=== PATIENT | female | born 1935 | race Caucasian/White ===

== ENCOUNTER 2017-10-26 11:57 | Emergency (ER) | payer OTHER ==
--- OUTSIDE RECORDS SUMMARY | 2017-10-26 11:59 | XMS REPORT | Clinical Summary ---
:1935 Author Organization [facility] Address [address] [place] [id number] Care Team Providers Name Role Phone Asked, No Pcp Primary Care Provider Unavailable Allergies No Known Allergies Current Medications Prescription Sig. Disp. Refills Start Date End Date Status sertraline (ZOLOFT) 100 MG Take 100 mg by 08/06/2016 Active tablet mouth daily. rosuvastatin (CRESTOR) 10 Take 10 mg by 08/11/2016 Active MG tablet mouth daily. aspirin (ECOTRIN) 81 MG Take 81 mg by Active enteric coated tablet mouth daily. Active Problems Problem Noted Date Cardiac syncope 08/21/2016 Bradycardia 08/21/2016 Depression 08/21/2016 Hyperlipidemia 08/21/2016 Sinus arrest 08/21/2016 Social History Tobacco Use Types Packs/Day Years Used Date Never Smoker Alcohol Use Drinks/Week oz/Week Comments No Sex Assigned at Date Recorded Not on file Last Filed Vital Signs Not on file Plan of Treatment Health Maintenance Due Date Last Done Comments ZOSTER VACCINE 1997 PNEUMOCOCCAL POLYSACCHARIDE VACCINE AGE 65 AND OVER 2002 PNEUMOCOCCAL-13 2002 INFLUENZA VACCINE 02/22/2018 Implants Implanted Type Area Highballer Device Expiration Model / Identifier Date Serial / Lot Pacemaker Recreation Worker Dr Knox 2chmbr W/ Is-1 Uni/Bi Conn Advisa - [id number] - [id number] Cardiac N/A: MEDTRONIC 12/19/2017 [id number] / Implanted: Qty: 1 on 08/21/2016 by Dawson Tompkins MD Pacemaker N/A CARDIAC RHYTHM [id number] / Generators DISEASE MGMT [id number] Lead, Pacemaker Bipolar Fix Forming Atrial And Ventricular Steroid Eluting 52 Centimeter Capsure Fix Novus - [id number] Cardiac Pacing N/A: [employer]TR[employer] CRM 04/10/2018 [id number] / Implanted: 08/21/2016 (Quantity not on file) Leads or N/A [employer]. [id number] / Electrodes or [id number] Accessories Lead, Bipolar Active Fixation Atrial Steroid Eluting 45 Cm Capsure Fix Novus System - [id number] Cardiac Pacing N/A: [employer] CRM 05/31/2018 [id number] / Implanted: 08/21/2016 (Quantity not on file) Leads or N/A [employer]. [id number] / Electrodes or [id number] Accessories Results Not on fileafter 10/25/2016 Insurance Payer Benefit Plan / Group Subscriber ID Type Phone Address MEDICARE MEDICARE PART A AND B xxxxxxxxxx Medicare [place], [place] AETNA MEDICARE AETNA MEDICARE HMO/PPO [facility] xxxxxxxx HMO 522 [phone] [address]
--- NOTE | 2017-10-26 12:58 | RAD REPORT ---
EXAM DESCRIPTION: RAD - Chest Single View - 10/26/2017 12:45 pm CLINICAL HISTORY: Chest pain. COMPARISON: 04/25/2017 FINDINGS: Portable technique limits examination quality. The lungs are grossly clear. The heart is normal in size. No displaced fractures.Dual lead pacer krystal ce is present. IMPRESSION: No acute intrathoracic process suspected.
[2017-10-26 13:06] LABS: Absolute Lymphocytes (CBC) 2.1 K/uL (0.7-4.9); Absolute Monocytes 0.5 K/uL (0.1-1.3); Absolute Neutrophil 2.5 K/uL (1.8-8.0); Basophils % 0.5 % (0-1.3); Eosinophils % 1.2 % (0-4.4); Hematocrit 39.1 % (36.0-45.0); Lymphocytes % 39.8 % (15.3-44.8); MCV 88.9 fL (80-100); MPV 8.8 fL (7.6-11.3); Monocytes % 10.5 % (3.3-12.3)
[2017-10-26 13:13] LABS: Protime INR 0.93
[2017-10-26 13:35] LABS: Bilirubin Direct 0.1 mg/dL (0-0.2); Bilirubin Total 0.6 mg/dL (0.3-1.2); CKMB Creatine Kinase MB 1.4 ng/ml (0.3-4.0); Protein, Total 6.6 g/dL (6.0-8.3)
[2017-10-26 13:36] LABS: Albumin 3.7 g/dL (3.2-5.5); Magnesium 1.9 mg/dL (1.8-2.5)
[2017-10-26] MEDS ORDERED: NA CHLORIDE 0.9% 500 ML ONE (15:24)
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
--- NOTE | 2017-10-26 15:25 | ER ---
Nurse's Notes [facility] Name: Yuki De Leon Age: 82 yrs Sex: Female : 1935 Arrival Date: 10/26/2017 Time: 11:59 Bed 7 Private MD: Diagnosis: Other chest pain-Due to Pacemaker Presentation: 10/26 12:09 Presenting complaint: Patient states: "I woke up this morning and my pacemaker was lk1 hurting. Now its messing with my stomach and I feel weak all over.". Transition of care: patient was not received from another setting of care. Onset of symptoms was October 25, 2017 at 08:00. Care prior to arrival: None. 12:09 Method Of Arrival: Ambulatory lk1 12:09 Acuity: SHAQ 3 lk1 Triage Assessment: 12:12 General: Appears in no apparent distress. Behavior is calm, cooperative, appropriate lk1 for age. Pain: Complains of pain in right leg and left leg Pain currently is 1 out of 10 on a pain scale. Cardiovascular: Capillary refill is brisk Patient's skin is warm and dry. Respiratory: Airway is patent Respiratory effort is even, unlabored, Respiratory pattern is regular, symmetrical. Historical: - Allergies: 12:11 No Known Allergies; lk1 - PMHx: 12:11 Hyperlipidemia; Hypothyroidism; Pacemaker; lk1 - PSHx: 12:11 CORNEAL TRANSPLANT; Hysterectomy; lk1 - Immunization history:: Adult Immunizations up to date. - Social history:: Smoking status: Patient/guardian denies using tobacco. Screenin:27 Abuse screen: Denies threats or abuse. Denies injuries from another. Nutritional iw screening: No deficits noted. Tuberculosis screening: No symptoms or risk factors identified. Fall Risk None identified. Assessment: 13:10 General: Appears in no apparent distress. comfortable, Behavior is calm, cooperative, ch appropriate for age. Pain: Denies pain. Neuro: Level of Consciousness is awake, alert, obeys commands, Oriented to person, place, time, situation, Special Effects Artist are equal bilaterally Moves all extremities. Full function Gait is steady, Speech is normal, Facial symmetry appears normal, Facial symmetry: tongue is midline, Pupils are PERRLA. Cardiovascular: Reports pt states once earlier in the day her chest hurt where the pace maker sits, and in her epigastric area. pt denies pain now. Denies chest pain, Heart tones S1 S2 present Capillary refill < 3 seconds in bilateral fingers toes JVD is absent Patient's skin is warm and dry. Pulses are all present. Edema is absent. 13:10 Respiratory: Airway is patent Respiratory effort is even, unlabored, Breath sounds are ch clear bilaterally. GI: No signs and/or symptoms were reported involving the gastrointestinal system. Abdomen is flat, non-distended, Bowel sounds present X 4 quads. Abd is soft and non tender X 4 quads. : No signs and/or symptoms were reported regarding the genitourinary system. Derm: Skin is normal. 14:00 General: Appears in no apparent distress. comfortable, Behavior is calm, cooperative. iw Pain: Denies pain. Neuro: Level of Consciousness is awake, alert, obeys commands, Oriented to person, place, time, situation, Moves all extremities. Full function. Cardiovascular: Patient's skin is warm and dry. Respiratory: Respiratory effort is even, unlabored, Respiratory pattern is regular, symmetrical. Derm: Skin is normal. Musculoskeletal: Range of motion: intact in all extremities. 15:00 Reassessment: Patient appears in no apparent distress at this time. Patient and/or iw family updated on plan of care and expected duration. Pain level reassessed. Patient is alert, oriented x 3, equal unlabored respirations, skin warm/dry/pink. pt ambulated to bathroom with steady gait. 15:10 Reassessment: Patient appears in no apparent distress at this time. pt states she does ch not want the fluids and if everything is normal she wants to go home. marcell page notified. Vital Signs: 12:12 BP 113 / 52; Pulse 66; Resp 15; Temp 97.7(O); Pulse Ox 99% on R/A; Weight 71.21 kg (R); lk1 Height 5 ft. 7 in. (170.18 cm) (R); Pain 1/10; 13:10 BP 132 / 78; Pulse 62; Resp 16; Temp 98.2; Pulse Ox 99% on R/A; Pain 0/10; ch 14:30 BP 120 / 58; Pulse 64; Resp 15; Pulse Ox 98% on R/A; Pain 0/10; ch 12:12 Body Mass Index 24.59 (71.21 kg, 170.18 cm) lk1 Vitals: 13:10 Cardiac Rhythm Assessment Paced. ED Course: 11:59 Patient arrived in ED. rg4 12:10 Triage completed. lk1 12:15 Arm band placed on right wrist. lk1 12:15 Patient has correct armband on for positive identification. iw 12:18 Marcell Loera PA is PHCP. cp 12:18 Marcell Sharma MD is Attending Physician. cp 12:34 X-ray completed. Portable x-ray completed in exam room. Patient tolerated procedure jb2 well. 12:34 XRAY Chest (1 view) In Process Unspecified. EDMS 12:43 EKG done, by holter technician. reviewed by Marcell POWELL. at1 12:50 Angélica Hooks, RN is Primary Nurse. 13:02 Inserted saline lock: 20 gauge in right antecubital area, using aseptic technique. cc1 13:02 Initial lab(s) drawn, by oh, sent to lab. cc1 14:30 No apparent distress. Resting quietly. 14:30 night monitor on. Pulse ox on. NIBP on. Warm blanket given. 15:28 No provider procedures requiring assistance completed. IV discontinued, intact, hj bleeding controlled, No redness/swelling at site. Pressure dressing applied. 15:29 Patient has correct armband on for positive identification. Placed in gown. Bed in low hj position. Call light in reach. Side rails up X 1. Adult w/ patient. Administered Medications: No medications were administered Outcome: 15:24 Discharge ordered by MD. 15:29 Discharged to home ambulatory, with family. 15:29 Condition: stable 15:29 Discharge instructions given to patient, family, Instructed on discharge instructions, follow up and referral plans. medication usage, Demonstrated understanding of instructions, follow-up care, medications, Prescriptions given X 1. 15:30 Patient left the ED. Signatures: Dispatcher [employer] EDMS Angélica Hooks, RN MARINA Remy Mckenna jb2 Azalia Burch RN RN Antwon Avila cc1 Malu vivas, electrolysis needle operator EKG Tat1 Collins Sal RN RN Marcell Loera PA PA cp Kluge, Leah, RN RN lk1 Carrie Montero rg4
[2017-10-26 15:38] VITALS: BP 113/52; TEMP 97.7; O2SAT 99
--- NOTE | 2017-10-26 15:50 | EKG ---
Test Date: 2017-10-26 Test Time: 12:33:31 Fruit Thinner: ANNIKA MEASUREMENT RESULTS: Intervals: Rate: 63 AK: 186 QRSD: 80 QT: 412 QTc: 421 [place]: P: AK: 186 QRS: -31 T: 56 INTERPRETIVE STATEMENTS: Atrial-paced rhythm Left axis deviation Possible Inferior infarct, age undetermined Abnormal ECG Compared to ECG 08/20/2016 15:24:54 Left-axis deviation now present Sinus bradycardia no longer present Sinus arrhythmia no longer present Myocardial infarct finding still present Electronically Signed On 10-26-17 15:49:36 CDT by Tobin Zapata
[2017-10-26 16:44] LABS: Urine Blood NEGATIVE (NEG); Urine Glucose NEGATIVE (NEG); Urine Protein NEGATIVE (NEG); Urine Specific Gravity 1.025 (1.005-1.030); Urine pH 6.5 (5.0-7.0)
== END 2017-10-26 15:30 | disposition home or self-care (01) ==
LOC: ER 11:57
DX: R07.89 Other chest pain (principal); E78.5 Hyperlipidemia, unspecified; Z95.0 Presence of cardiac pacemaker
CPT/HCPCS: 36415; 71045; 80048; 80076; 81003; 82550; 82553; 83735; 83880; 84484; 85025; 85610; 85730; 93005; 99284

== ENCOUNTER 2017-11-17 11:21 | Inpatient (IN) | payer OTHER ==
--- OUTSIDE RECORDS SUMMARY | 2017-11-17 11:24 | XMS REPORT | Clinical Summary ---
:1935 Author Organization [facility] Address [address] [place] [id number] Care Team Providers Name Role Phone Asked, [...] Health Maintenance Due Date Last Done Comments SHINGRIX VACCINE (#1) 1987 ZOSTER VACCINE 1997 PNEUMOCOCCAL POLYSACCHARIDE VACCINE AGE 65 AND OVER 2002 PNEUMOCOCCAL-13 2002 INFLUENZA VACCINE 02/22/2018 Implants Implanted Type Area It Network Architect Device Expiration Model / Identifier Date Serial / Lot Pacemaker Information Technology Auditor Dr Mri 2chmbr W/ Is-1 Uni/Bi Conn Advisa - [id number] - [id number] Cardiac N/A: MEDTRONIC 12/19/2017 [id number] / Implanted: Qty: 1 on 08/21/2016 by Dawson Tompkins MD Pacemaker N/A CARDIAC RHYTHM [id number] / Generators DISEASE MGMT [id number] Lead, Pacemaker Bipolar Fix Forming Atrial And Ventricular Steroid Eluting 52 Centimeter Capsure Fix Novus - [id number] Cardiac Pacing N/A: [employer] CRM 04/10/2018 [id number] / Implanted: 08/21/2016 (Quantity not on file) Leads or N/A [employer] [id number] / Electrodes or [id number] Accessories Lead, Bipolar Active Fixation Atrial Steroid Eluting 45 Cm Capsure Fix Novus System - [id number] Cardiac Pacing N/A: [employer] CRM 05/31/2018 [id number] / Implanted: 08/21/2016 (Quantity not on file) Leads or N/A [employer] [id number] / Electrodes or [id number] Accessories Results Not on fileafter 11/16/2016 Insurance Payer Benefit Plan / Group Subscriber ID Type Phone Address MEDICARE MEDICARE PART A AND B xxxxxxxxxx Medicare [place], [place] AETNA MEDICARE AETNA MEDICARE HMO/PPO [facility] xxxxxxxx HMO 522 [phone] [place] [id number]
--- NOTE | 2017-11-17 13:00 | RAD REPORT ---
EXAM DESCRIPTION: RAD - Chest Pa And Lat (2 Views) - 11/17/2017 12:33 pm CLINICAL HISTORY: Cough and congestion. COMPARISON: 05/03/2017, 08/20/2016 FINDINGS: Area of nodularity in the right apex appears unchanged. The lungs are clear of acute infil trate. The heart is normal in size. No displaced fractures. Dual lead pacer device is present. IMPRESSION: Vague area of nodularity in right apex appears similar to comparative examinations. No acute intrathoracic finding.
[2017-11-17 13:43] LABS: Absolute Lymphocytes (CBC) 2.8 K/uL (0.7-4.9); Absolute Neutrophil 8.9 K/uL (1.8-8.0); Basophils % 0.3 % (0-1.3); Eosinophils % 0.3 % (0-4.4); Hematocrit 41.4 % (36.0-45.0); Lymphocytes % 21.9 % (15.3-44.8); MCH 28.3 pg (27.0-35.0); MCV 88.4 fL (80-100); MPV 8.8 fL (7.6-11.3); Monocytes % 7.9 % (3.3-12.3); RBC Red Blood Cell Count 4.68 M/uL (3.86-4.86)
[2017-11-17 13:54] LABS: Potassium 4.5 mEq/L (3.6-5.0)
--- NOTE | 2017-11-17 15:15 | EDPHYS ---
Physician Documentation [facility] Name: Yuki De Leon Age: 82 yrs Sex: Female : 1935 Arrival Date: 11/17/2017 Time: 11:22 Bed 28 Private MD: [facility] ED Physician Jesse Ferrer HPI: 11/17 13:32 This 82 yrs old Female presents to ER via Wheelchair with complaints of kb Cough, Congestion. 13:32 The patient or guardian reports cough, that is intermittent, described as mild, with no kb sputum. Onset: The symptoms/episode began/occurred 3 day(s) ago. Severity of symptoms: At their worst the symptoms were mild, moderate, in the emergency department the symptoms are unchanged. Modifying factors: The symptoms are alleviated by nothing, the symptoms are aggravated by nothing. Associated signs and symptoms: Pertinent positives: chest pain, right sided, Pertinent negatives: diarrhea, ear ache, fever, nausea, rhinorrhea, sore throat, vomiting. The patient has not experienced similar symptoms in the past. The patient has not recently seen a physician. 13:34 Pt states she thinks she has pneumonia because she has had a cough and congestion for 3 kb weeks and then started having a pain to right upper chest 3 days ago. Historical: - Allergies: 11:34 No Known Allergies; aj - Home Meds: 11:34 levothyroxine oral [Active]; sertraline oral oral [Active]; aj - PMHx: 11:34 Hyperlipidemia; Hypothyroidism; Pacemaker; aj - PSHx: 11:34 CORNEAL TRANSPLANT; Hysterectomy; aj - Immunization history:: Adult Immunizations up to date. - Social history:: Smoking status: Patient/guardian denies using tobacco. ROS: 13:32 Constitutional: Negative for fever, chills, and weight loss, Abdomen/GI: Negative for kb abdominal pain, nausea, vomiting, diarrhea, and constipation, Back: Negative for injury and pain, : Negative for injury, bleeding, discharge, and swelling, MS/Extremity: Negative for injury and deformity, Skin: Negative for injury, rash, and discoloration, Neuro: Negative for headache, weakness, numbness, tingling, and seizure. 13:32 Cardiovascular: Positive for chest pain, Negative for edema, orthopnea, palpitations, paroxysmal nocturnal dyspnea. 13:32 Respiratory: Positive for cough, Negative for dyspnea on exertion, hemoptysis, orthopnea, pleurisy, shortness of breath, sputum production, wheezing. Exam: 13:35 Constitutional: This is a well developed, well nourished patient who is awake, alert, kb and in no acute distress. Head/Face: Normocephalic, atraumatic. Chest/axilla: Normal chest wall appearance and motion. Nontender with no deformity. No lesions are appreciated. Cardiovascular: Regular rate and rhythm with a normal S1 and S2. No gallops, murmurs, or rubs. Normal PMI, no JVD. No pulse deficits. Respiratory: Lungs have equal breath sounds bilaterally, clear to auscultation and percussion. No rales, rhonchi or wheezes noted. No increased work of breathing, no retractions or nasal flaring. Abdomen/GI: Soft, non-tender, with normal bowel sounds. No distension or tympany. No guarding or rebound. No evidence of tenderness throughout. Skin: Warm, dry with normal turgor. Normal color with no rashes, no lesions, and no evidence of cellulitis. MS/ Extremity: Pulses equal, no cyanosis. Neurovascular intact. Full, normal range of motion. Neuro: Awake and alert, GCS 15, oriented to person, place, time, and situation. Cranial nerves II-XII grossly intact. Motor strength 5/5 in all extremities. Sensory grossly intact. Cerebellar exam normal. Normal gait. Vital Signs: 11:34 BP 105 / 61; Pulse 87; Resp 20; Temp 98.0; Pulse Ox 98% on R/A; Weight 76.2 kg; Height aj 5 ft. 7 in. (170.18 cm); 13:05 BP 128 / 68; Pulse 78; Resp 18; Pulse Ox 97% on R/A; Pain 0/10; em 14:15 BP 133 / 69; Pulse 75; Resp 18; Pulse Ox 98% ; Pain 5/10; em 15:36 BP 143 / 68; Pulse 76; Resp 20; Pulse Ox 97% on R/A; Pain 0/10; em 16:43 BP 117 / 53; Pulse 82; Resp 21; Temp 98.1(O); Pulse Ox 98% on R/A; Pain 0/10; em 11:34 Body Mass Index 26.31 (76.20 kg, 170.18 cm) aj MDM: 12:58 Patient medically screened. kb 13:35 Data reviewed: vital signs, nurses notes. Data interpreted: Pulse oximetry: on room air kb is 98 %. Interpretation: normal. 14:46 Counseling: I had a detailed discussion with the patient and/or guardian regarding: the kb historical points, exam findings, and any diagnostic results supporting the discharge/admit diagnosis, lab results, radiology results, the need for further work-up and treatment in the hospital. 15:11 Physician consultation: Delphine Kelley MD was contacted at 15:13, regarding admission, kb to the telemetry unit. patient's condition, and will see patient in ED. 11/17 13:12 Order name: Basic Metabolic Panel kb 11/17 13:12 Order name: BNP 11/17 13:12 Order name: CBC with Diff kb 11/17 13:12 Order name: Magnesium kb 11/17 13:12 Order name: Troponin (emerg Dept Use Only) kb 11/17 13:12 Order name: Basic Metabolic Panel; Complete Time: 13:56 EDMS 11/17 11:44 Order name: Chest Pa And Lat (2 Views) XRAY; Complete Time: 13:00 kb 11/17 13:12 Order name: BNP B-Type Natriuretic Peptide; Complete Time: 14:23 EDMS 11/17 13:12 Order name: CBC with Automated Diff; Complete Time: 13:44 EDMS 11/17 13:12 Order name: Magnesium; Complete Time: 13:56 EDMS 11/17 13:12 Order name: Troponin (Emerg Dept Use Only); Complete Time: 14:23 EDMS 11/17 13:29 Order name: DD; Complete Time: 14:46 em 11/17 15:29 Order name: PT-INR; Complete Time: 15:56 ag 11/17 15:29 Order name: Ptt, Activated; Complete Time: 15:56 ag 11/17 13:12 Order name: EKG; Complete Time: 13:12 kb 11/17 13:12 Order name: EKG - Nurse/Tech; Complete Time: 14:35 kb 11/17 13:12 Order name: IV Saline Lock; Complete Time: 13:29 kb 11/17 13:12 Order name: Labs collected and sent; Complete Time: 13:29 kb 11/17 13:12 Order name: O2 Per Protocol; Complete Time: 13:29 kb 11/17 13:12 Order name: O2 Sat Monitoring; Complete Time: 13:29 kb 11/17 14:41 Order name: CT Chest For PE Angio; Complete Time: 15:37 kb Administered Medications: 15:49 Drug: Lovenox 1 mg/kg Route: Sub-Q; Site: abdomen; em 16:36 Follow up: Response: No adverse reaction em Disposition: 11/17/17 15:15 Hospitalization ordered by Delphine Kelley for Inpatient Admission. Preliminary diagnosis are Chest pain, unspecified, Pulmonary embolism. - Bed requested for Telemetry/MedSurg (Inpatient). - Status is Inpatient Admission. em - Condition is Stable. - Problem is new. - Symptoms are unchanged. UTI on Admission? No Addendum: 11/21/2017 12:44 Co-signature as Attending Physician, Jesse Ferrer MD. g s Signatures: Dispatcher [employer] EDOR Angelina Wilson, CREDIT AND COLLECTIONS ANALYST-C CREDIT AND COLLECTIONS ANALYST-Ckb Malu Dunlap, RN RN Ernesto Thornton, DIRECTOR OF SAFETY AND SECURITY DIRECTOR OF SAFETY AND SECURITY Kristine Breaux, RN Jesse Pina MD MD gs Corrections: (The following items were deleted from the chart) 11/17 13:30 13:12 Urine Dipstick-Ancillary ordered. kb em
--- NOTE | 2017-11-17 15:15 | ER ---
Nurse's Notes [facility] Name: Yuki De Leon Age: 82 yrs Sex: Female : 1935 Arrival Date: 11/17/2017 Time: 11:22 Bed 28 Private MD: Froylan Baez Diagnosis: Chest pain, unspecified;Pulmonary embolism Presentation: 11/17 11:32 Presenting complaint: Patient states: "I feel like my chest is congested. I called Dr abril Baez and they told me to come into the ER because they had no way of doing a chest xray." Respirations are even and unlabored in triage. Transition of care: patient was not received from another setting of care. Onset of symptoms was November 13, 2017. Initial Sepsis Screen: Does the patient meet any 2 criteria? No. Patient's initial sepsis screen is negative. Does the patient have a suspected source of infection? No. Patient's initial sepsis screen is negative. Care prior to arrival: None. 11:32 Method Of Arrival: Wheelchair 11:32 Acuity: SHAQ 3 aj Triage Assessment: 11:34 General: Appears in no apparent distress. comfortable, Behavior is calm, cooperative, aj appropriate for age. Pain: Denies pain. EENT: Reports nasal congestion nasal discharge. Neuro: Level of Consciousness is awake, alert, obeys commands, Oriented to person, place, time, situation. Respiratory: Reports cough that is pain with cough Airway is patent Respiratory effort is even, unlabored, Respiratory pattern is regular, symmetrical, Breath sounds are clear. Derm: Skin is intact, is healthy with good turgor, Skin is pink, warm \\T\\ dry. normal. Historical: - Allergies: 11:34 No Known Allergies; aj - Home Meds: 11:34 levothyroxine oral [Active]; sertraline oral oral [Active]; aj - PMHx: 11:34 Hyperlipidemia; Hypothyroidism; Pacemaker; aj - PSHx: 11:34 CORNEAL TRANSPLANT; Hysterectomy; aj - Immunization history:: Adult Immunizations up to date. - Social history:: Smoking status: Patient/guardian denies using tobacco. Screenin:45 Abuse screen: Denies threats or abuse. Nutritional screening: No deficits noted. em Tuberculosis screening: No symptoms or risk factors identified. Fall Risk None identified. Assessment: 13:10 General: Appears in no apparent distress. comfortable, Behavior is calm, cooperative, em Reports cough and chest pain with respirations that started about 3 weeks ago but has got worse the past 3 days. Pain: Complains of pain in anterior aspect of right upper chest Pain radiates to back Pain currently is 6 out of 10 on a pain scale. Neuro: Level of Consciousness is awake, alert, Oriented to person, place, time, situation, Speech is normal, Denies dizziness. Cardiovascular: Heart tones S1 S2 present Capillary refill < 3 seconds Patient's skin is warm and dry. Respiratory: Airway Respiratory effort is even, unlabored. Respiratory: Breath sounds are clear bilaterally. GI: Abdomen is flat. : No signs and/or symptoms were reported regarding the genitourinary system. EENT: No signs and/or symptoms were reported regarding the EENT system. Derm: Skin is intact, Skin is pink, warm \\T\\ dry. Musculoskeletal: Range of motion: intact in all extremities. 13:15 General: The previous assessment is accurate, call light remains within reach. . ss 14:15 Reassessment: Patient appears in no apparent distress at this time. Patient and/or em family updated on plan of care and expected duration. Pain level reassessed. Patient is alert, oriented x 3, equal unlabored respirations, skin warm/dry/pink. 14:40 Reassessment: Patient appears in no apparent distress at this time. critical lab em result, DD [id number], Angelina MASTER DATA ANALYST notified. 15:04 Reassessment: Patient appears in no apparent distress at this time. Patient and/or em family updated on plan of care and expected duration. Pain level reassessed. Patient is alert, oriented x 3, equal unlabored respirations, skin warm/dry/pink. pt wheeled to CT via stretcher. 16:00 Reassessment: Patient appears in no apparent distress at this time. Patient and/or em family updated on plan of care and expected duration. Pain level reassessed. Patient is alert, oriented x 3, equal unlabored respirations, skin warm/dry/pink. Patient states feeling better. 16:58 Reassessment: Patient appears in no apparent distress at this time. Patient and/or em family updated on plan of care and expected duration. Pain level reassessed. Patient is alert, oriented x 3, equal unlabored respirations, skin warm/dry/pink. pt family at bedside Patient denies pain at this time. Patient states feeling better. Vital Signs: 11:34 BP 105 / 61; Pulse 87; Resp 20; Temp 98.0; Pulse Ox 98% on R/A; Weight 76.2 kg; Height aj 5 ft. 7 in. (170.18 cm); 13:05 BP 128 / 68; Pulse 78; Resp 18; Pulse Ox 97% on R/A; Pain 0/10; em 14:15 BP 133 / 69; Pulse 75; Resp 18; Pulse Ox 98% ; Pain 5/10; em 15:36 BP 143 / 68; Pulse 76; Resp 20; Pulse Ox 97% on R/A; Pain 0/10; em 16:43 BP 117 / 53; Pulse 82; Resp 21; Temp 98.1(O); Pulse Ox 98% on R/A; Pain 0/10; em 11:34 Body Mass Index 26.31 (76.20 kg, 170.18 cm) aj ED Course: 11:22 Patient arrived in ED. as 11:22 Froylan Baez DO is Private Physician. as 11:33 Triage completed. aj 11:34 Arm band placed on left wrist. Patient placed in waiting room, Patient notified of wait aj time. 12:33 Chest Pa And Lat (2 Views) XRAY In Process Unspecified. EDMS 12:54 Angelina Wilson FNP-C is PHCP. kb 12:54 Jesse Ferrer MD is Attending Physician. kb 12:58 Ernesto Thornton LVN is Primary Nurse. em 13:25 Inserted saline lock: 20 gauge in left antecubital area, using aseptic technique. Blood em collected. 13:25 No provider procedures requiring assistance completed. Initial lab(s) drawn, by me, em sent to lab. 13:45 Patient has correct armband on for positive identification. Bed in low position. Call em light in reach. Side rails up X2. Adult w/ patient. 14:09 EKG done, by fresh foods technician. reviewed by Jesse Ferrer MD. tc 14:17 Notified Nurse Practitioner and/or Physician Theatre Manager of a critical lab result(s), evaristo Whittakerby from lab reported troponin of 0.88. Notified DIONICIO García. 15:14 Delphine Kelley MD is Hospitalizing Provider. kb 15:18 CT Chest For PE Angio In Process Unspecified. EDMS 16:59 Patient admitted, IV remains in place. em Administered Medications: 15:49 Drug: Lovenox 1 mg/kg Route: Sub-Q; Site: abdomen; em 16:36 Follow up: Response: No adverse reaction em Outcome: 15:15 Decision to Hospitalize by Provider. kb 16:58 Admitted to Tele accompanied by tech, family with patient, via stretcher, room 215, em Report called to Franklyn Etienne RN 16:58 Condition: good 16:58 Instructed on the need for admit, Demonstrated understanding of instructions. 17:13 Patient left the ED. em Signatures: Dispatcher [employer] EDMS Angelina Wilson, PRINTING SERVICES COORDINATOR-C PRINTING SERVICES COORDINATOR-Malu Sanchez, RN RN Ernesto Quevedo, INFORMATION MANAGER INFORMATION MANAGER em Grace Dailey Shelby, RN RN Frances Winters, box liner EKG Ttc Apoorva Fitzgerald, RN RN kr2 Corrections: (The following items were deleted from the chart) 11:36 11:34 Arm band placed on left wrist. Patient placed in an exam room, baril samuels 16:58 16:58 Reassessment: Patient appears in no apparent distress at this time. Patient em and/or family updated on plan of care and expected duration. Pain level reassessed. Patient is alert, oriented x 3, equal unlabored respirations, skin warm/dry/pink. Patient denies pain at this time. Patient states feeling better. em
--- NOTE | 2017-11-17 15:35 | RAD REPORT ---
EXAM DESCRIPTION: CT - Chest For Pe Angio - 11/17/2017 3:18 pm CLINICAL HISTORY: Chest pain COMPARISON: 2013 TECHNIQUE: Dynamically enhanced axial 3 mm thick images of the chest were obtained during administra tion of <100> mL Isovue 370 IV contrast. Coronal and oblique reconstruction images were generated and reviewed. Exam utilizes a protocol for optimal evaluation of pulmonary arterial tree. All CT scans are performed using dose optimization technique as appropriate and may include automated exposure control or mA/KV adjustment according to patient size. FINDINGS: Thrombus is present throughout large portion of the the left lower lobe pulmonary artery, right lower lobe pulmonary artery, right middle lobe pulmonary artery. Additional thrombus to a lesse r extent is seen within the upper lobe pulmonary arteries. Thrombus is also present within the distal left main pulmonary artery. A thoracic aortic aneurysm is not noted. A pleural effusion is not seen. A pericardial effusion is not seen. A pulmonary infarct is not seen. A 13 millimeter nodule within the right upper lobe has decreased in size since 2011 A 22 millimeter right pericardiac opacity has developed IMPRESSION: Moderate to marked bilateral pulmonary emboli 22 millimeter right pericardiac opacity. A followup CT chest in 3 months is recommended The exam was discussed with Cintia Wilson emergency room 3:20 p.m. November 17, 2017
--- NOTE | 2017-11-17 15:38 | EKG ---
Test Date: 2017-11-17 Test Time: 13:36:22 Railcar Switcher: EUGENIO MEASUREMENT RESULTS: Intervals: Rate: 77 IL: 128 QRSD: 70 QT: 406 QTc: 459 [place]: P: 87 IL: 128 QRS: 261 T: 48 INTERPRETIVE STATEMENTS: Normal sinus rhythm Right superior axis deviation Possible Anterior infarct, age undetermined Abnormal ECG Compared to ECG 10/26/2017 12:33:31 Right superior axis now present Atrial-paced complex(es) or rhythm no longer present Ventricular-paced complex(es) or rhythm no longer present Left-axis deviation no longer present Myocardial infarct finding still present Electronically Signed On 11-17-17 15:37:31 CDT by Parveen Arias
[2017-11-17] MEDS ORDERED: ENOXAPARIN 80 MG/0.8 ML SQ ONE (15:42)
[2017-11-17 15:43] LABS: Protime INR 1.05
--- NOTE | 2017-11-17 16:02 | P.HP ---
Certification for Inpatient Patient admitted to: Inpatient With expected LOS: >2 Midnights Practitioner: I am a practitioner with admitting privileges, knowledge of patient current condition, hospital course, and medical plan of care. Services: Services provided to patient in accordance with Admission requirements found in Title 42 Section 412.3 of the Code of Federal Regulations Patient History Date of Service: 11/17/17 Reason for admission: Pulmonary embolism History of Present Illness: Ms De Leon is an 82 years old woman with history of hypothyroidism, history of DVT not on anticoagulation, who start with chest pain about 2 days ago. The pain is on her right side of the chest, constant, about 7/10 of intensity. She denied any , dizziness or weakness. She complaint also of bilateral calf pain since several month ago. In ER her Trop I was elevated 0.88, EKG with non- specific repolarization abnormalities. D-Dimer elevated 7419. Subsequent CTA chest was remarkable for bilateral PE. Allergies No Known Allergies Allergy (Verified 08/20/16 22:23) Home Medications: Bifidobacterium Infantis [Align] 4 mg PO DAILY 02/05/13 Hyolcyamint 0.125 mg SL PRN PRN 02/05/13 Levothyroxine [Synthroid*] 100 mcg PO [id number] 02/05/13 Omeprazole [Prilosec] 20 mg PO DAILY 02/05/13 Sertraline [Zoloft*] 50 mg PO DAILY 02/05/13 Hypromellose [Artificial Tears] 1 gtt OP PRN PRN 02/07/13 Prednisolone Acetate [Pred Mild] 1 gtt OP DAILY 02/07/13 Timolol 0.5% Opth [Timoptic 0.5% Ophth] 1 drops EACH EYE BID 02/07/13 Ciprofloxacin HCl [Cipro*] 500 mg PO BID #20 tab 02/08/13 - Past Medical/Surgical History Diabetic: No -: Hypothyroidism -: Glaucoma -: History of DVT -: GERD -: Depression with anxiety -: Hyperlipidemia -: Spinal stenosis -: Hysterectomy -: Cornea implants -: Neck surgery Psychosocial/ Personal History: She is of over 60 years, has 3 children , 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 - Family History Father -: Cancer (Lung cancer, heavy smoker) Mother -: Heart disease, Hypertension Brother -: Hypertension, Diabetes - Social History Smoking Status: Never smoker Alcohol use: No CD- Drugs: No Caffeine use: Yes Place of Residence: Home Review of Systems 10-point ROS is otherwise unremarkable Physical Examination - Physical Exam General: Alert, In no apparent distress HEENT: Atraumatic, PERRLA, Mucous membr. moist/pink, EOMI, Sclerae nonicteric Neck: Supple, 2+ carotid pulse no bruit, No LAD, Without JVD or thyroid abnormality Respiratory: Clear to auscultation bilaterally, Normal air movement Cardiovascular: Regular rate/rhythm, Normal S1 S2 Gastrointestinal: Normal bowel sounds, No tenderness Musculoskeletal: Tenderness (to palpation on bilateral calf) Integumentary: No rashes Neurological: Normal speech, Normal strength at 5/5 x4 extr, Normal tone, Normal affect Lymphatics: No axilla or inguinal lymphadenopathy - Studies Laboratory Data (last 24 hrs) 11/17/17 14:10: PT 12.4, INR 1.05, APTT 28.2 11/17/17 13:25: WBC 12.8 H, Hgb 13.3, Hct 41.4, Plt Count 345 11/17/17 13:25: B-Natriuretic Peptide 397 H 11/17/17 13:25: Sodium 138, Potassium 4.5, BUN 23 H, Creatinine 1.18 H, Glucose 124 H, Magnesium 2.0 Assessment and Plan - Problems (Diagnosis) (1) Pulmonary embolism Current Visit: Yes Status: Acute Qualifiers: Pulmonary embolism type: saddle Chronicity: acute Acute cor pulmonale presence: without acute cor pulmonale Qualified Code(s): I26.92 - Saddle embolus of pulmonary artery without acute cor pulmonale (2) Hyperlipidemia Current Visit: No Status: Chronic Qualifiers: Hyperlipidemia type: unspecified Qualified Code(s): E78.5 - Hyperlipidemia , unspecified (3) Hypothyroidism Current Visit: No Status: Chronic Qualifiers: Hypothyroidism type: unspecified Qualified Code(s): E03.9 - Hypothyroidism , unspecified - Plan Ms De Leon will be admitted to the hospital due to acute pulmonary embolism. She is hemodynamically stable, BP withing normal limits, O2 sat > 95% on RA, no dyspnea. Will start Full dose lovenox, If she is hemodynamically stable, she can be switch to a novel oral anticoagulant tomorrow and discharge home if remain stable. Will order a doppler US of LE. - Advance Directives Does patient have a Living Will: No Does patient have a Durable POA for Healthcare: No - Code Status/Comfort Care Code Status Assessed: Yes Code Status: Full Code
[2017-11-17] MEDS ORDERED: ONDANSETRON 4 MG/2 ML VIAL IV PRN (17:47)
--- NOTE | 2017-11-17 19:27 | RAD REPORT ---
EXAM DESCRIPTION: VASExtrem Venous W Compress Bil11/17/2017 7:14 pm CLINICAL HISTORY: Bilateral leg swelling COMPARISON: none FINDINGS: The common femoral, superficial femoral, popliteal and posterior tibial veins bilaterally are compressible and demonstrate augmentation. Doppler demonstrates good flow. IMPRESSION: No evidence of deep venous thrombosis involving either lower extremity.
[2017-11-17] MEDS: NA CHLORIDE 0.9% 1,000 ML IV SCH ×2 (20:54→23:34)
[2017-11-17] MEDS: ENOXAPARIN 80 MG/0.8 ML SQ SCH (23:34)
[2017-11-17] MEDS ORDERED: MELATONIN 5 MG TABLET PO PRN (23:40)
[2017-11-18 05:30] LABS: Absolute Lymphocytes (CBC) 2.9 K/uL (0.7-4.9); Absolute Monocytes 0.9 K/uL (0.1-1.3); Absolute Neutrophil 7.6 K/uL (1.8-8.0); Basophils % 0.1 % (0-1.3); Eosinophils % 0.3 % (0-4.4); Hematocrit 36.3 % (36.0-45.0); Lymphocytes % 25.3 % (15.3-44.8); MCH 28.7 pg (27.0-35.0); MCV 88.5 fL (80-100); MPV 9.1 fL (7.6-11.3); Monocytes % 7.8 % (3.3-12.3)
[2017-11-18 05:39] LABS: Potassium 4.3 mEq/L (3.6-5.0)
[2017-11-18] MEDS ORDERED: PNEUMOCOCCAL VACCINE 0.5 ML IMVAC ONE (08:00)
[2017-11-18] MEDS: ENOXAPARIN 80 MG/0.8 ML SQ SCH (08:40)
[2017-11-18] MEDS ORDERED: HYPROMELLOSE OP PRN (09:37)
--- NOTE | 2017-11-18 10:25 | P.CNS ---
Date of Consult: 11/18/17 Reason for Consult: Pulmonary embolus Chief Complaint: Pulmonary embolism History of Present Illness: Patient is 82 years of age admitted with acute onset of shortness of breath and right-sided chest pain admitted from the emergency room diagnosis of pulmonary embolism no prior history of cardiopulmonary disorder denies any previous history of thromboembolic disease she does have a pacemaker and sees a turbine engineer denies any fever chills doing fine as been sick for about few days has chronic swelling of her left leg Allergies No Known Allergies Allergy (Verified 08/20/16 22:23) Home Medications: Levothyroxine [Synthroid*] 100 mcg PO [id number] 02/05/13 Sertraline [Zoloft*] 50 mg PO DAILY 02/05/13 Hypromellose [Artificial Tears] 1 gtt OP PRN PRN 02/07/13 Timolol 0.5% Opth [Timoptic 0.5% Ophth] 1 drops EACH EYE BID 02/07/13 Cholecalciferol (Vitamin D3) [Vitamin D3] 1 tab PO DAILY 11/17/17 Melatonin 1 tab PO BEDTIME 11/17/17 - Past Medical/Surgical History Diabetic: No -: Hypothyroidism -: Glaucoma -: History of DVT -: GERD -: Depression with anxiety -: Hyperlipidemia -: Spinal stenosis -: Hysterectomy -: Cornea implants -: Neck surgery -: Pacemaker placement Psychosocial/ Personal History: She is of over 60 years, has 3 children , 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 - Family History Father History Unknown: Yes Medical History: Cancer (Lung cancer, heavy smoker) Notes: Lung CA Mother History Unknown: Yes Medical History: Heart disease, Hypertension Brother History Unknown: Yes Medical History: Hypertension, Diabetes - Social History Smoking Status: Never smoker Alcohol use: No CD- Drugs: No Caffeine use: Yes Place of Residence: Home Review of Systems 10-point ROS is otherwise unremarkable Physical Examination Temp Pulse Resp BP Pulse Ox 98.4 F 80 18 131/62 95 11/18/17 04:00 11/18/17 04:00 11/18/17 04:00 11/18/17 04:00 11/18/17 04:00 General: Alert, Oriented x3 HEENT: Atraumatic Neck: Supple Respiratory: Clear to auscultation bilaterally Cardiovascular: No edema, Regular rate/rhythm, Normal S1 S2 Gastrointestinal: Normal bowel sounds, Soft and benign Laboratory Data (last 24 hrs) 11/17/17 14:10: PT 12.4, INR 1.05, APTT 28.2 11/17/17 13:25: WBC 12.8 H, Hgb 13.3, Hct 41.4, Plt Count 345 11/17/17 13:25: B-Natriuretic Peptide 397 H 11/17/17 13:25: Sodium 138, Potassium 4.5, BUN 23 H, Creatinine 1.18 H, Glucose 124 H, Magnesium 2.0 - Problems (1) Pulmonary embolism Current Visit: Yes Status: Acute Plan: Patient is 82 years of age admitted with an acute PE which is bilateral she is currently doing well hemodynamically stable oxygenation satisfactory on 2 L of nasal cannula oxygen patient can be changed over 2 Xarelto or Eliquis pending given what's covered by her insurance check room air pulse ox ambulate resume regular diet patient will need lifelong anticoagulation due to unprovoked pulmonary embolism she can ambulate Dc IV fluids Qualifiers: Pulmonary embolism type: saddle Chronicity: acute Acute cor pulmonale presence: without acute cor pulmonale Qualified Code(s): I26.92 - Saddle embolus of pulmonary artery without acute cor pulmonale
--- NOTE | 2017-11-18 16:15 | P.PN ---
Subjective Date of Service: 11/18/17 Primary Care Provider: Dr. Baez Chief Complaint: Pulmonary embolism Subjective: Improving Physical Examination - Vital Signs Temperature: 97.8 F Blood Pressure: 137/61 Pulse: 75 Respirations: 16 Pulse Ox (%): 96 - Physical Exam General: Alert, In no apparent distress, Oriented x3, Cooperative HEENT: Atraumatic Neck: Supple Respiratory: Clear to auscultation bilaterally, Normal air movement Cardiovascular: Normal pulses, Regular rate/rhythm Gastrointestinal: Normal bowel sounds, Soft and benign, Non-distended, No ascites, No tenderness, No masses, No rebound, No guarding Musculoskeletal: No erythema, No tenderness, No warmth Integumentary: No tenderness/swelling, No erythema, No warmth, No cyanosis Neurological: Normal speech, Normal strength at 5/5 x4 extr, Normal tone, Normal affect Lymphatics: No axilla or inguinal lymphadenopathy - Studies Medications List Reviewed: Yes Assessment & Plan - Problems (Diagnosis) (1) Pulmonary embolism Onset Date: 11/18/17 Current Visit: Yes Status: Acute Plan: Patient will need lifelong anti coagulation therapy. Patient on Eliquis. Will wean off oxygen. If stable the patient can be discharged tomorrow. Pulmonology has evaluated the patient and agrees with plan. Qualifiers: Pulmonary embolism type: saddle Chronicity: acute Acute cor pulmonale presence: without acute cor pulmonale Qualified Code(s): I26.92 - Saddle embolus of pulmonary artery without acute cor pulmonale (2) Hypothyroidism Current Visit: Yes Status: Chronic Plan: Will continue with her medication. Qualifiers: Hypothyroidism type: unspecified Qualified Code(s): E03.9 - Hypothyroidism , unspecified (3) GERD (gastroesophageal reflux disease) Current Visit: No Status: Chronic Plan: Will continue with medication. Qualifiers: Esophagitis presence: esophagitis presence not specified Qualified Code(s) : K21.9 - Gastro-esophageal reflux disease without esophagitis (4) Pulmonary nodule Current Visit: No Status: Chronic Plan: Patient has a right upper lobe nodule. Recommendation to recheck CT of the chest in 3 months. This can be followed up by pulmonology. (5) History of pacemaker Current Visit: Yes Status: Chronic Plan: Patient with history of pacemaker in place. Discharge Plan: Home Plan to discharge in: 24 Hours Time Spent Managing Pts Care (In Minutes): 55
--- NOTE | 2017-11-18 16:52 | ECHO ---
HEIGHT: 5 ft 7 in WEIGHT: 168 lb 0 oz DATE OF STUDY: 11/18/[address]: Salomon Mcguire DO 2-DIMENSIONAL: YES M.MODE: YES DOPPLER: YES COLOR FLOW: YES TDS: PORTABLE: DEFINITY: BUBBLE STUDY: DIAGNOSIS: BILATERAL PULMONARY EMBOLISM CARDIAC HISTORY: CATHERIZATION: NO SURGERY: NO PROSTHETIC VALVE: NO PACEMAKER: YES MEASUREMENTS (cm) DIASTOLIC (NORMALS) SYSTOLIC (NORMALS) IVSd 1.2 (0.6-1.2) LA Diam (1.9-4.0) LVEF 65% LVIDd 3.5 (3.5-5.7) LVIDs 2.3 (2.0-3.5) %FS 34% LVPWd 1.1 (0.6-1.2) Ao Diam 2.8 (2.0-3.7) 2 DIMENSIONAL ASSESSMENT: RIGHT ATRIUM: NORMAL LEFT ATRIUM: NORMAL RIGHT VENTRICLE: NORMAL LEFT VENTRICLE: NORMAL TRICUSPID VALVE: NORMAL MITRAL VALVE: NORMAL PULMONIC VALVE: NORMAL AORTIC VALVE: NORMAL PERICARDIAL EFFUSION: NONE AORTIC ROOT: NORMAL LEFT VENTRICULAR WALL MOTION: NORMAL DOPPLER/COLOR FLOW: MODERATE TRICUSPID REGURGITATION. MODERATE PULMONARY HYPERTENSION. COMMENTS: MODERATE PULMONARY HYPERTENSION - RIGHT VENTRICULAR SYSTOLIC PRESSURE 62 mmHg. TRICUSPID REGURGITATION. NORMAL LEFT VENTRICULAR EJECTION FRACTION AND SIZE. TECHNOLOGIST: ISABELLE SMITH
[2017-11-18] MEDS: APIXABAN 5 MG TABLET PO SCH (21:23)
[2017-11-18] MEDS: TIMOLOL MALEATE 0.5% OPTH 5 ML BTL OPTH SCH (21:24)
[2017-11-19] MEDS: PANTOPRAZOLE 40MG TABLET PO SCH (05:32)
[2017-11-19] MEDS: LEVOTHYROXINE SOD 0.1 MG TAB PO SCH (05:32)
[2017-11-19 06:18] LABS: Absolute Lymphocytes (CBC) 2.8 K/uL (0.7-4.9); Absolute Monocytes 0.8 K/uL (0.1-1.3); Absolute Neutrophil 6.9 K/uL (1.8-8.0); Basophils % 0.2 % (0-1.3); Eosinophils % 0.5 % (0-4.4); Hematocrit 36.3 % (36.0-45.0); Lymphocytes % 26.2 % (15.3-44.8); MCH 29.2 pg (27.0-35.0); MCV 87.9 fL (80-100); MPV 8.9 fL (7.6-11.3); Monocytes % 7.6 % (3.3-12.3); RBC Red Blood Cell Count 4.13 M/uL (3.86-4.86)
[2017-11-19 06:29] LABS: Magnesium 2.1 mg/dL (1.8-2.5); Potassium 4.3 mEq/L (3.6-5.0)
[2017-11-19] MEDS: TIMOLOL MALEATE 0.5% OPTH 5 ML BTL OPTH SCH ×2 (09:00→20:46)
[2017-11-19] MEDS: SERTRALINE HCL 50 MG TAB PO SCH (09:09)
[2017-11-19] MEDS: APIXABAN 5 MG TABLET PO SCH ×2 (09:09→20:45)
--- NOTE | 2017-11-19 16:58 | CON ---
Date of Consultation: 11/18/[address] to Dr. Mcguire's service on 11/17/2017. I saw the patient on 11/18/2017. Reason For Consultation: Bilateral pulmonary embolus. History Of Present Illness: Ms. De Leon is an 82-year-old white woman, who was really previously healt hy except for dyslipidemia. She had a pacemaker about a year ago at [facility] secondary to si ck sinus syndrome. She normally sees Dr. Duenas, in [place]. Came in with shortness of breath and fior st pain and cough, congestion, was noted to have bilateral pulmonary embolus on CT angiogram. She llamas s a negative chest x-ray. Negative venous Doppler of the lower extremity. White count was 11,000. D-dimer was 7419. Her troponin was 0.88. BNP 397. Her echo was normal with pulmonary hypertension that is moderate at 62 mmHg. 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 The patient was placed on Eliquis and Lovenox, and has improved symptomatically. H er creatinine is 1.0. Past Medical History: As stated above. Allergies: NONE. Review of Systems: Negative. Social History: Negative. Family History: Negative. Medications: At home include Synthroid. Physical Examination: General: Very pleasant, alert, oriented x3. No distress. Vital signs: Stable, afebrile. HEENT: Negative. Chest: Clear. Cardiac: Revealed a regular rhythm and rate with a tricuspid regurgitation murmur. No gallops or ru bs. Abdomen: Benign. Extremities: Revealed no clubbing, cyanosis, or edema. Diagnostic Data: As stated earlier. Impression And Plan: Bilateral pulmonary embolus. Etiology unknown. The patient stated that she ma y have some irregular heartbeat in the past but she did not have atrial fibrillation when she had her pacemaker. She has never heard the term atrial fibrillation as far as she is concerned. Neverthele ss, certainly that cannot be ruled out, but without any definite etiology or pulmonary embolus, I slime l continue her Eliquis probably permanently. Dr. Girard has seen her. Her blood pressure is good controlled and her pacemaker seems to be functioning properly. She sees Dr. Duenas on a regular basis. She has a home monitor for her pacemaker. Her moderate hypertension, suspect role of pulmonary embo monie and so is elevation of the troponin and BNP. I certainly would not follow up on these. She has a 22 mm pericardial mass that needs to be followed up probably in [address] scan and either Dr. Lim or Dr. Duenas can certainly follow up on that. JHONY/EMILY Voice ID: [id number] Report ID: [id number]
[2017-11-20] MEDS: LEVOTHYROXINE SOD 0.1 MG TAB PO SCH (05:31)
[2017-11-20] MEDS: PANTOPRAZOLE 40MG TABLET PO SCH (05:31)
[2017-11-20 06:37] VITALS: BMI 23.5
[2017-11-20 06:48] LABS: Absolute Lymphocytes (CBC) 2.6 K/uL (0.7-4.9); Absolute Monocytes 0.8 K/uL (0.1-1.3); Absolute Neutrophil 6.1 K/uL (1.8-8.0); Basophils % 0.1 % (0-1.3); Eosinophils % 0.7 % (0-4.4); Hematocrit 35.2 % (36.0-45.0); Lymphocytes % 27.4 % (15.3-44.8); MCH 28.7 pg (27.0-35.0); MCV 88.2 fL (80-100); MPV 9.1 fL (7.6-11.3); Monocytes % 8.2 % (3.3-12.3); RBC Red Blood Cell Count 3.99 M/uL (3.86-4.86)
[2017-11-20 06:54] LABS: Potassium 4.5 mEq/L (3.6-5.0)
[2017-11-20 08:05] VITALS: O2SAT 95
[2017-11-20] MEDS: TIMOLOL MALEATE 0.5% OPTH 5 ML BTL OPTH SCH (09:00)
[2017-11-20] MEDS: APIXABAN 5 MG TABLET PO SCH (09:57)
[2017-11-20] MEDS: SERTRALINE HCL 50 MG TAB PO SCH (09:57)
--- NOTE | 2017-11-20 10:44 | DS ---
Date of Discharge: 11/19/2017 Consultants: Dr. Arias, Cardiology; Dr. Girard, Pulmonology. Admitting Diagnoses: 1.Acute pulmonary embolism. 2.Hyperlipidemia. 3.Hypothyroidism. Discharge Diagnoses: 1.Acute pulmonary embolism. The patient will need anticoagulation for life. The patient has had pr evious history of deep venous thrombosis. 2.Hypothyroidism. Continue Synthroid. 3.Gastroesophageal reflux disease without esophagitis. Continue PPI. 4.Pulmonary nodule, right upper lobe. Recheck CT of the chest in 3 months. Follow up with Pultatyana trejo as outpatient. 5.History of pacemaker. 6.Troponin elevation, likely secondary to pulmonary embolism. Echocardiogram shows normal ejection fraction. 7.Moderate pulmonary hypertension. 8.Moderate tricuspid regurgitation. Hospital Course: The patient is an 82-year-old female, who was admitted to the hospital for acute PE . CT scan of the chest was done, which showed PE. The patient was started on therapeutic Lovenox. She also was found to have an incidental pulmonary nodule 13 mm, which has decreased in size since 13 07. She will need a repeat CT chest in 3 months to follow up with Pulmonology. Pulmonology and Card iology were consulted. The patient was seen by Dr. Arias and Dr. Girard. The patient did have s ome elevated white count, which normalized. She also had elevation in her rapid troponin, which was 0.88. Troponin levels were trended and resulted in 0.09, 0.08, and 0.07. The patient denies any fur ther chest pain. The patient was switched over to Novel oral anticoagulant and did well. She is irvin ng weaned off oxygen. The patient did have some dyspnea with exertion. The patient was then cleared for discharge from Pulmonology and Cardiology standpoint. The patient was then discharged home in a stable condition. Activity: No strenuous activity. Followup: Follow up with primary care physician in 2-3 days. Follow up with side show entertainer, Dr. Birgit rahman in 2 weeks. Follow up with inventory control planner, Dr. Arias in 2 weeks. Return to ER for worsening co ndition. Total Time: Total time spent discharging the patient was 37 minutes. Medications: As per medication reconciliation list. Diet: Heart healthy. Physical Examination: General: Awake, alert, oriented, no acute distress. Elderly female. CV: S1, S2. No murmurs. Respiratory: Moving air well bilaterally. No wheezing. Abdomen: Soft, nontender, and nondistended. Positive bowel sounds. Extremities: No clubbing, cyanosis. Neurologic: Nonfocal. SA/MODL Voice ID: [id number] Report ID: [id number]
[2017-11-20 13:05] VITALS: BP 134/60; TEMP 97.8
--- NOTE | 2017-11-20 13:15 | PN ---
Date of Progress Note: 11/20/2017 Subjective: The patient seen and examined. Chart reviewed and case discussed with RN. The patient was discharged yesterday; however, after conferring with the pharmacy, the patient stated that she co uld initially not afford her Eliquis, therefore plan was to switch her to Coumadin; however, the sonia ent declined Coumadin and stated that she will be able to pay for the Eliquis. Review of Systems: Negative except as above. Medications: Reviewed. Physical Examination: Vital Signs: Temperature 98.5, heart rate 66, blood pressure 115/54, respirations 18, O2 96% on room air. General: Awake, alert, oriented x3. No acute distress, elderly female. CV: S1, S2. No murmurs. Regular rate and rhythm. Peripheral pulses present. Respiratory: Moving air well bilaterally. No wheezing. Gastrointestinal: Abdomen is soft, nontender, and nondistended. Positive bowel sounds. Extremities: No clubbing, cyanosis, edema. Neurologic: Nonfocal. Laboratory Data: Sodium 139, potassium 4.5, chloride 109, CO2 25, BUN 17, creatinine 0.93, glucose 1 14, calcium 9.2. WBC is 9.6, H and H 11.5 and 35.2, platelets 363. Assessment And Plan: An 82-year-old female with: 1.Acute pulmonary embolism. The patient will continue Eliquis. The patient states that she is able to afford the Eliquis. She understands that she needs to be on anticoagulation for life and does no t wish to be on Coumadin. The patient has a history of previous deep venous thrombosis. 2.Hypothyroidism. Continue Synthroid. 3.Gastroesophageal reflux disease without esophagitis. PPI. 4.Paracardiac opacity. We will need repeat CT chest in 3 months. 5.A 13 mm nodule within the right upper lobe, decreased in size. 6.Status post pacemaker. 7.Troponin elevation secondary to pulmonary embolism. 8.Moderate pulmonary hypertension. 9.Moderate tricuspid regurgitation. Plan: Discharge home. GALI Voice ID: [id number] Report ID: [id number]
== END 2017-11-20 12:19 | disposition home or self-care (01) | DRG 176 ==
LOC: ER 11:21 → ERHOLD 15:29 → 2ND 17:05
PROVIDERS: ADMIT Internal Medicine; ATTEND Family Medicine
DX: I26.92 Saddle embolus of pulmonary artery without acute cor pulmonale (principal); I07.1 Rheumatic tricuspid insufficiency; I27.20 Pulmonary hypertension, unspecified; R91.1 Solitary pulmonary nodule; E03.9 Hypothyroidism, unspecified; E78.5 Hyperlipidemia, unspecified; K21.9 Gastro-esophageal reflux disease without esophagitis; F41.8 Other specified anxiety disorders; Z95.0 Presence of cardiac pacemaker; Z86.718 Personal history of other venous thrombosis and embolism
CPT/HCPCS: 36415; 71046; 71275; 80048; 83735; 83880; 84484; 85025; 85379; 85610; 85730; 90670; 93005; 93306; 93970; 94760; 94761; 96372; 99285; G0009; J1650; J7030; Q9967

== ENCOUNTER 2018-02-11 13:34 | Emergency (ER) | payer OTHER ==
--- OUTSIDE RECORDS SUMMARY | 2018-02-11 13:36 | XMS REPORT ---
:1935 Author Organization e[employer] Care Team Providers Name Role Phone Froylan Baez Provider Role Unavailable Allergies No Known Allergies Problems Problem Type Condition Code Onset Dates Condition Status Assessment Chronic fatigue R53.82 Active Assessment Tubular adenoma D36.9 Active Assessment Spinal stenosis, 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 Assessment Presence of cardiac pacemaker Z95.0 Active Assessment Gastro-esophageal reflux disease K21.9 Active without esophagitis Assessment Chronic kidney disease, stage 3 N18.3 Active Assessment Lung nodule, solitary R91.1 Active Assessment Depression F32.9 Active Problem Gastro-esophageal reflux disease K21.9 Active without esophagitis Assessment Hyperlipidemia E78.5 Active Problem Pulmonary embolism I26.99 Active Assessment Hypothyroidism E03.9 Active Problem Family history of breast cancer Z80.3 Active Problem Osteopenia M85.80 Active Problem Abnormal mammogram R92.8 Active Problem Spinal stenosis, 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 Problem Hyperlipidemia E78.5 Active Problem Chronic fatigue R53.82 Active Problem Chronic kidney disease, stage 3 N18.3 Active Problem Bilateral pulmonary embolism I26.99 Active Assessment Bilateral pulmonary embolism I26.99 Active Problem Palpitation R00.2 Active Problem Depression F32.9 Active Problem Hypothyroidism E03.9 Active Problem Vitamin D deficiency E55.9 Active Problem Presence of cardiac pacemaker Z95.0 Active Problem Colon polyp K63.5 Active Problem Sick sinus syndrome I49.5 Active Problem Lung nodule, solitary R91.1 Active Problem Peripheral vascular disease, I73.9 Active unspecified Problem Physical debility R53.81 Active Problem Bilateral inguinal hernia K40.20 Active Problem Tubular adenoma D36.9 Active Medications Medication Code System Code Instructions Start End Date Status Dosage Date Claritin [facility] 88763043460 10 MG Orally Active 1 tablet Once a day Aspir-81 ND 80475929375 81 MG Orally Active 1 tablet Once a day Melatonin ND 26631074610 5 MG Orally Once Active 1 tablet at a day bedtime as needed with food Eliquis ND 94857721601 5 MG Orally BID Active not defined Zoloft [facility] 76107852029 100 MG Orally Active 1 tablet Once a day Synthroid [facility] 10590174431 88 MCG Orally Active 1 tablet on Once a day an empty stomach in the morning Results No Known Results Summary Purpose eClinicalWorks Submission
--- OUTSIDE RECORDS SUMMARY | 2018-02-11 13:36 | XMS REPORT | Clinical Summary ---
:1935 Author Organization [facility] Address [address] [place] [address] Care Team Providers Name Role Phone Asked, [...] INFLUENZA VACCINE 02/22/2018 Implants Implanted Type Area Nanny Caregiver Device Expiration Model / Identifier Date Serial / Lot Pacemaker Program Aide Dr Mri 2chmbr W/ Is-1 Uni/Bi Conn Advisa - [id number] - [id number] Cardiac N/A: [employer] 12/19/2017 [id number] / Implanted: Qty: 1 on 08/21/2016 by Dawson Tompkins MD Pacemaker N/A CARDIAC RHYTHM [id number] / Generators DISEASE MGMT [id number] Lead, Pacemaker Bipolar Fix Forming Atrial And Ventricular Steroid Eluting 52 Centimeter Capsure Fix Novus - [id number] Cardiac Pacing N/A: [employer] CRM 04/10/2018 [id number] / Implanted: 08/21/2016 (Quantity not on file) Leads or N/A [employer] [id number] / Electrodes or [id number] Accessories Lead, Bipolar Active Fixation Atrial Steroid Eluting 45 Cm Capsure Fix Novus System - [id number] Cardiac Pacing N/A: [employer] [facility] 05/31/2018 [id number] / Implanted: 08/21/2016 (Quantity not on file) Leads or N/A [employer] [id number] / Electrodes or [id number] Accessories Results Not on fileafter 02/10/2017 Insurance Payer Benefit Plan / Group Subscriber ID Type Phone Address MEDICARE MEDICARE PART A AND B xxxxxxxxxx Medicare [place], [place] AETNA MEDICARE AETNA MEDICARE HMO/PPO [facility] xxxxxxxx HMO 522 [phone] [place] [id number]
[2018-02-11 15:18] LABS: Absolute Lymphocytes (CBC) 2.9 K/uL (0.7-4.9); Absolute Neutrophil 4.3 K/uL (1.8-8.0); Basophils % 0.1 % (0-1.3); Eosinophils % 1.1 % (0-4.4); Hematocrit 40.9 % (36.0-45.0); Lymphocytes % 35.2 % (15.3-44.8); MCH 29.2 pg (27.0-35.0); MCV 88.9 fL (80-100); Monocytes % 11.9 % (3.3-12.3)
[2018-02-11 15:32] LABS: ALT/SGPT 22 U/L (12-78); AST/SGOT 18 U/L (15-37); Albumin 3.7 g/dL (3.4-5.0); Alkaline Phosphatase 75 U/L (45-117); BUN Blood Urea Nitrogen 17 mg/dL (7-18); Bicarbonate 28 mmol/L (21-32); Bilirubin Direct < 0.1 mg/dL (0-0.2); Bilirubin Total 0.4 mg/dL (0.2-1.0); Glucose Level 95 mg/dL (74-106); Lipase 216 U/L (73-393); Potassium 4.1 mmol/L (3.5-5.1); Protein, Total 7.3 g/dL (6.4-8.2); Sodium Level 141 mmol/L (136-145)
[2018-02-11 15:36] LABS: Urine Blood NEGATIVE (NEG); Urine Glucose NEGATIVE (NEG); Urine Protein NEGATIVE (NEG)
--- NOTE | 2018-02-11 16:00 | ER ---
Nurse's Notes [facility] Name: Yuki De Leon Age: 82 yrs Sex: Female : 1935 Arrival Date: 02/11/2018 Time: 13:38 Bed 16 Private MD: Froylan Baez Diagnosis: Melena Presentation: 02/11 13:49 Presenting complaint: Patient states: black stools x 2-3 days ago. pt denies pain, aa5 denies N/V/D. Pt states "I take Eliquis". Transition of care: patient was not received from another setting of care. Onset of symptoms was January 2018. Risk Assessment: Do you want to hurt yourself or someone else? Patient reports no desire to harm self or others. Initial Sepsis Screen: Does the patient meet any 2 criteria? No. Patient's initial sepsis screen is negative. Does the patient have a suspected source of infection? No. Patient's initial sepsis screen is negative. Care prior to arrival: None. 13:49 Method Of Arrival: Ambulatory aa5 13:49 Acuity: SHAQ 3 aa5 Historical: - Allergies: 13:50 No Known Allergies; aa5 - PMHx: 13:50 Hyperlipidemia; Hypothyroidism; Pacemaker; aa5 - PSHx: 13:50 CORNEAL TRANSPLANT; Hysterectomy; aa5 - Immunization history:: Adult Immunizations not up to date. - Social history:: Smoking status: Patient/guardian denies using tobacco. - Ebola Screening: : No symptoms or risks identified at this time. Screenin:08 Abuse screen: Denies threats or abuse. Denies injuries from another. Nutritional aj screening: No deficits noted. Tuberculosis screening: No symptoms or risk factors identified. Fall Risk None identified. Assessment: 15:08 General: Appears in no apparent distress. comfortable, Behavior is calm, cooperative, aj appropriate for age. Pain: Denies pain. Neuro: Level of Consciousness is awake, alert, obeys commands, Oriented to person, place, time, situation, Appropriate for age. Respiratory: Airway is patent Respiratory effort is even, unlabored, Respiratory pattern is regular, symmetrical. GI: Abdomen is flat, non-distended, Reports black stool. Derm: Skin is intact, is healthy with good turgor, Skin is pink, warm \\T\\ dry. normal. Vital Signs: 13:50 BP 136 / 58; Pulse 73; Resp 18 S; Temp 98.5(O); Pulse Ox 96% on R/A; Weight 65.77 kg aa5 (R); Height 5 ft. 7 in. (170.18 cm) (R); Pain 0/10; 15:08 BP 132 / 72; Pulse 78; Resp 16; Pulse Ox 98% on R/A; aj 16:05 BP 131 / 69; Pulse 70; Resp 16; Pulse Ox 99% on R/A; aj 13:50 Body Mass Index 22.71 (65.77 kg, 170.18 cm) aa5 ED Course: 13:38 Patient arrived in ED. mr 13:38 Froylan Baez DO is Private Physician. mr 13:49 Triage completed. aa5 13:49 Arm band placed on. aa5 14:41 Malu Dunlap, RN is Primary Nurse. aj 14:43 Kal Luo PA is PHCP. jr8 14:43 Manolo Barcenas MD is Attending Physician. jr8 15:08 Patient has correct armband on for positive identification. aj 15:08 Inserted saline lock: 22 gauge in right antecubital area, using aseptic technique. aj Blood collected. 15:59 North Constantino MD is Referral Physician. jr8 16:05 No provider procedures requiring assistance completed. IV discontinued, intact, aj bleeding controlled, No redness/swelling at site. Pressure dressing applied. Administered Medications: No medications were administered Outcome: 15:59 Discharge ordered by . jr8 16:05 Discharged to home ambulatory. aj 16:05 Condition: good 16:05 Discharge instructions given to patient, Instructed on discharge instructions, follow up and referral plans. Demonstrated understanding of instructions, follow-up care, medications. 16:08 Patient left the ED. aj Signatures: Malu Dunlap, RN Yulisa Tim Audri, RN RN aa Kal Luo PA PA jr
--- NOTE | 2018-02-11 16:00 | EDPHYS ---
Physician Documentation [facility] Name: Yuki De Leon Age: 82 yrs Sex: Female : 1935 Arrival Date: 02/11/2018 Time: 13:38 Bed 16 Private MD: Nestor [facility] ED Physician Manolo Barcenas HPI: 02/11 15:10 This 82 yrs old Female presents to ER via Ambulatory with complaints of jr8 Bloody Stools. 15:10 Onset: The symptoms/episode began/occurred gradually, 7 day(s) ago. Abdominal pain: jr8 none is appreciated. Modifying factors: The symptoms are alleviated by nothing, the symptoms are aggravated by nothing. Associated signs and symptoms: The patient has no apparent associated signs or symptoms. Severity of symptoms: At their worst the symptoms were very mild in the emergency department the symptoms are unchanged. The patient has not experienced similar symptoms in the past. The patient has not recently seen a physician. 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 Stated that she thought she saw some black stool about 1 week ago on/off. Stated that today she saw a lot more. Came to be evaluated for possible bleeding . Historical: - Allergies: 13:50 No Known Allergies; aa5 - PMHx: 13:50 Hyperlipidemia; Hypothyroidism; Pacemaker; aa5 - PSHx: 13:50 CORNEAL TRANSPLANT; Hysterectomy; aa5 - Immunization history:: Adult Immunizations not up to date. - Social history:: Smoking status: Patient/guardian denies using tobacco. - Ebola Screening: : No symptoms or risks identified at this time. ROS: 15:10 Eyes: Negative for injury, pain, redness, and discharge, ENT: Negative for injury, jr8 pain, and discharge, Neck: Negative for injury, pain, and swelling, Cardiovascular: Negative for chest pain, palpitations, and edema, Respiratory: Negative for shortness of breath, cough, wheezing, and pleuritic chest pain, Back: Negative for injury and pain, MS/Extremity: Negative for injury and deformity, Skin: Negative for injury, rash, and discoloration, Neuro: Negative for headache, weakness, numbness, tingling, and seizure. 15:10 Abdomen/GI: Positive for black/tarry stool, Negative for abdominal pain, nausea, vomiting, and diarrhea, abdominal distension, anorexia, dysphagia, hematemesis, rectal pain, rectal bleeding, bowel incontinence, flatulence. Exam: 15:10 Eyes: Pupils equal round and reactive to light, extra-ocular motions intact. Lids and jr8 lashes normal. Conjunctiva and sclera are non-icteric and not injected. Cornea within normal limits. Periorbital areas with no swelling, redness, or edema. ENT: Nares patent. No nasal discharge, no septal abnormalities noted. Tympanic membranes are normal and external auditory canals are clear. Oropharynx with no redness, swelling, or masses, exudates, or evidence of obstruction, uvula midline. Mucous membranes moist. Neck: Trachea midline, no thyromegaly or masses palpated, and no cervical lymphadenopathy. Supple, full range of motion without nuchal rigidity, or vertebral point tenderness. No Meningismus. Cardiovascular: Regular rate and rhythm with a normal S1 and S2. No gallops, murmurs, or rubs. Normal PMI, no JVD. No pulse deficits. Respiratory: Lungs have equal breath sounds bilaterally, clear to auscultation and percussion. No rales, rhonchi or wheezes noted. No increased work of breathing, no retractions or nasal flaring. Back: No spinal tenderness. No costovertebral tenderness. Full range of motion. Skin: Warm, dry with normal turgor. Normal color with no rashes, no lesions, and no evidence of cellulitis. MS/ Extremity: Pulses equal, no cyanosis. Neurovascular intact. Full, normal range of motion. Neuro: Awake and alert, GCS 15, oriented to person, place, time, and situation. Cranial nerves II-XII grossly intact. Motor strength 5/5 in all extremities. Sensory grossly intact. Cerebellar exam normal. Normal gait. 15:10 Abdomen/GI: Inspection: abdomen appears normal, Bowel sounds: active, all quadrants, jr8 Palpation: abdomen is soft and non-tender, in all quadrants, mass, is not appreciated, rebound tenderness, is not appreciated, voluntary guarding, is not appreciated, involuntary guarding, is not appreciated, no appreciated organomegaly, Rectal exam: rectal tone normal, Stool: brown, guaiac negative, hemorrhoid(s), external, without bleeding, without inflammation, without thrombosis, without pain, mass, is not appreciated, swelling, is not appreciated, tenderness, is not appreciated, fecal impaction, is not appreciated, the exam is chaperoned by the nurse, Indicators: McBurney's point is not tender, Ojeda's sign is negative, Rovsing's sign is negative, Liver: no appreciated palpable abnormalities, tenderness, is not appreciated. Vital Signs: 13:50 BP 136 / 58; Pulse 73; Resp 18 S; Temp 98.5(O); Pulse Ox 96% on R/A; Weight 65.77 kg aa5 (R); Height 5 ft. 7 in. (170.18 cm) (R); Pain 0/10; 15:08 BP 132 / 72; Pulse 78; Resp 16; Pulse Ox 98% on R/A; aj 16:05 BP 131 / 69; Pulse 70; Resp 16; Pulse Ox 99% on R/A; aj 13:50 Body Mass Index 22.71 (65.77 kg, 170.18 cm) aa5 MDM: 14:43 Patient medically screened. [facility] 15:57 Data reviewed: vital signs, nurses notes, lab test result(s), and as a result, I will jr8 discharge patient. Data interpreted: Pulse oximetry: on room air is 98 %. Interpretation: normal. Counseling: I had a detailed discussion with the patient and/or guardian regarding: the historical points, exam findings, and any diagnostic results supporting the discharge/admit diagnosis, lab results, the need for outpatient follow up, a family practitioner, a electrical intern, to return to the emergency department if symptoms worsen or persist or if there are any questions or concerns that arise at home. ED course: negative guiac. H/H stable. For now would keep using eliquis. To f/u with FM and GI. If she sees it again or is worse to come back . 02/11 14:43 Order name: Basic Metabolic Panel; Complete Time: 15:56 02/11 14:43 Order name: CBC with Diff; Complete Time: 15:56 02/11 14:43 Order name: Creatinine for Radiology; Complete Time: 15:56 02/11 14:43 Order name: Hepatic Function; Complete Time: 15:56 02/11 14:43 Order name: Lipase; Complete Time: 15:56 02/11 14:43 Order name: IV Saline Lock; Complete Time: 15:19 02/11 14:43 Order name: Labs collected and sent; Complete Time: 15:19 [facility] 02/11 14:43 Order name: Urine Dipstick-Ancillary (obtain specimen); Complete Time: 15:19 [facility] 02/11 15:11 Order name: Urine Dipstick--Ancillary (enter results); Complete Time: 15:56 bd Administered Medications: No medications were administered Disposition: 16:13 Co-signature as Attending Physician, Manolo Barcenas MD. rn Disposition: 02/11/18 15:59 Discharged to Home. Impression: Melena. - Condition is Stable. - Discharge Instructions: Gastrointestinal Bleeding. - Medication Reconciliation Form, Thank You Letter, Antibiotic Education, Prescription Opioid Use form. - Follow up: [place] MD; When: 2 - 3 days; Reason: Recheck today's complaints, Continuance of care, Re-evaluation by your physician. - Problem is new. - Symptoms are unchanged. Signatures: Dispatcher [employer] EDMalu Phan RN RN aj Nieto, Roman, MD MD rn Calderon, Audri, RN RN aa5 Kal Luo PA PA jr8 Corrections: (The following items were deleted from the chart) 15:13 15:10 Eyes: Pupils equal round and reactive to light, extra-ocular motions intact. Lids jr8 and lashes normal. Conjunctiva and sclera are non-icteric and not injected. Cornea within normal limits. Periorbital areas with no swelling, redness, or edema. ENT: Nares patent. No nasal discharge, no septal abnormalities noted. Tympanic membranes are normal and external auditory canals are clear. Oropharynx with no redness, swelling, or masses, exudates, or evidence of obstruction, uvula midline. Mucous membranes moist. Neck: Trachea midline, no thyromegaly or masses palpated, and no cervical lymphadenopathy. Supple, full range of motion without nuchal rigidity, or vertebral point tenderness. No Meningismus. Cardiovascular: Regular rate and rhythm with a normal S1 and S2. No gallops, murmurs, or rubs. Normal PMI, no JVD. No pulse deficits. Respiratory: Lungs have equal breath sounds bilaterally, clear to auscultation and percussion. No rales, rhonchi or wheezes noted. No increased work of breathing, no retractions or nasal flaring. Abdomen/GI: Soft, non-tender, with normal bowel sounds. No distension or tympany. No guarding or rebound. No evidence of tenderness throughout. Back: No spinal tenderness. No costovertebral tenderness. Full range of motion. Skin: Warm, dry with normal turgor. Normal color with no rashes, no lesions, and no evidence of cellulitis. MS/ Extremity: Pulses equal, no cyanosis. Neurovascular intact. Full, normal range of motion. Neuro: Awake and alert, GCS 15, oriented to person, place, time, and situation. Cranial nerves II-XII grossly intact. Motor strength 5/5 in all extremities. Sensory grossly intact. Cerebellar exam normal. Normal gait. jr8 16:08 15:59 02/11/2018 15:59 Discharged to Home. Impression: Melena. Condition is Stable. aj Forms are Medication Reconciliation Form, Thank You Letter, Antibiotic Education, Prescription Opioid Use. Follow up: [place]; When: 2 - 3 days; Reason: Recheck today's complaints, Continuance of care, Re-evaluation by your physician. Problem is new. Symptoms are unchanged. jr8
[2018-02-11 16:13] VITALS: TEMP 98.5
[2018-02-11 16:15] VITALS: BP 131/69; O2SAT 99
== END 2018-02-11 16:08 | disposition home or self-care (01) ==
LOC: ER 13:34
DX: K92.1 Melena (principal); E78.5 Hyperlipidemia, unspecified; E03.9 Hypothyroidism, unspecified; Z95.0 Presence of cardiac pacemaker
CPT/HCPCS: 36415; 80048; 80076; 81003; 83690; 85025; 99283

== ENCOUNTER 2018-04-05 05:11 | Emergency (ER) | payer OTHER ==
[2018-04-05 06:47] LABS: Absolute Lymphocytes (CBC) 2.4 K/uL (0.7-4.9); Absolute Monocytes 0.6 K/uL (0.1-1.3); Absolute Neutrophil 3.1 K/uL (1.8-8.0); Basophils % 0.3 % (0-1.3); Hematocrit 39.9 % (36.0-45.0); Lymphocytes % 38.4 % (15.3-44.8); MCH 30.4 pg (27.0-35.0); MCV 89.8 fL (80-100); MPV 8.3 fL (7.6-11.3); Monocytes % 10.2 % (3.3-12.3); RBC Red Blood Cell Count 4.44 M/uL (3.86-4.86)
[2018-04-05 06:48] LABS: Protime INR 1.06
[2018-04-05 06:50] LABS: ALT/SGPT 19 U/L (12-78); AST/SGOT 12 U/L (15-37); Albumin 3.4 g/dL (3.4-5.0); Alkaline Phosphatase 73 U/L (45-117); BUN Blood Urea Nitrogen 15 mg/dL (7-18); Bicarbonate 28 mmol/L (21-32); Bilirubin Direct 0.1 mg/dL (0-0.2); Bilirubin Total 0.4 mg/dL (0.2-1.0); CKMB Creatine Kinase MB < 1.0 ng/mL (0.3-3.6); Creatine Phosphokinase 51 U/L (26-192); Glucose Level 107 mg/dL (74-106); Magnesium 2.4 mg/dL (1.8-2.4); NT PRO-BNP 452 pg/mL (<450); Potassium 4.2 mmol/L (3.5-5.1); Protein, Total 6.7 g/dL (6.4-8.2); Sodium Level 142 mmol/L (136-145); Troponin (Emerg Dept Use Only) < 0.02 ng/mL (0.0-0.045)
--- NOTE | 2018-04-05 08:05 | ER ---
Nurse's Notes [facility] Name: Yuki De Leon Age: 82 yrs Sex: Female : 1935 Arrival Date: 04/05/2018 Time: 05:12 Bed 4 Private MD: Froylan Baez Diagnosis: Encounter for adjustment and management of cardiac pacemaker;Weakness-General Presentation: 04/05 05:25 Presenting complaint: Patient states: "I feel like my pacemaker is getting weaker"; lp1 Patient states feeling weak since last night, feeling like she might faint; States throughout night pacemaker monitor has alerted her to check pacemaker 3 times. Transition of care: patient was not received from another setting of care. Onset of symptoms was April 05, 2018. Risk Assessment: Do you want to hurt yourself or someone else? Patient reports no desire to harm self or others. Initial Sepsis Screen: Does the patient meet any 2 criteria? No. Patient's initial sepsis screen is negative. Does the patient have a suspected source of infection? No. Patient's initial sepsis screen is negative. Care prior to arrival: None. 05:25 Method Of Arrival: Wheelchair lp1 05:25 Acuity: SHAQ 2 lp1 Triage Assessment: 05:30 General: Patient states she has [employer] pacemaker. lp1 Historical: - Allergies: 05:28 No Known Allergies; lp1 - Home Meds: 05:28 Synthroid Oral once daily [Active]; lp1 - PMHx: 05:28 Hyperlipidemia; Hypothyroidism; Pacemaker; lp1 - PSHx: 05:28 None; lp1 - Immunization history:: Adult Immunizations up to date. - Social history:: Smoking status: Patient/guardian denies using tobacco. - Ebola Screening: : No symptoms or risks identified at this time. Screenin:28 Abuse screen: Denies threats or abuse. Denies injuries from another. Nutritional lp1 screening: No deficits noted. Tuberculosis screening: No symptoms or risk factors identified. Fall Risk None identified. Assessment: 05:28 General: Appears in no apparent distress. Behavior is calm, cooperative, appropriate lp1 for age. Pain: Denies pain. Neuro: Level of Consciousness is awake, alert, obeys commands, Oriented to person, place, time, situation, Gait is steady, Speech is normal, Reports dizziness. Cardiovascular: Patient's skin is warm and dry. Respiratory: Respiratory effort is even, unlabored, Breath sounds are clear bilaterally. GI: No signs and/or symptoms were reported involving the gastrointestinal system. : No signs and/or symptoms were reported regarding the genitourinary system. EENT: No signs and/or symptoms were reported regarding the EENT system. Derm: Skin is pink, warm \\T\\ dry. Musculoskeletal: Circulation, motion, and sensation intact. 07:15 Reassessment: Patient appears in no apparent distress at this time. Patient and/or hb family updated on plan of care and expected duration. Pain level reassessed. Patient is alert, oriented x 3, equal unlabored respirations, skin warm/dry/pink. 07:42 Reassessment: Pt up to bathroom via wheelchair with nurse, urine specimen provided. hb 08:10 Reassessment: Patient appears in no apparent distress at this time. Patient and/or hb family updated on plan of care and expected duration. Pain level reassessed. Patient is alert, oriented x 3, equal unlabored respirations, skin warm/dry/pink. Patient denies pain at this time. 08:27 Reassessment: Report called to Patricia GRAY at [facility]. Vital Signs: 05:26 BP 168 / 86; Pulse 69; Resp 18; Temp 98.1(O); Pulse Ox 99% on R/A; Weight 63.05 kg; lp1 Height 5 ft. 7 in. (170.18 cm); Pain 0/10; 06:08 BP 159 / 70; Pulse 64; Resp 12; Pulse Ox 100% on R/A; lp1 07:13 BP 148 / 68; Pulse 65; Resp 14; Pulse Ox 100% on R/A; hb 08:08 BP 163 / 64 Supine; Pulse 63; hb 08:11 BP 150 / 67 Sitting; Pulse 72; hb 08:14 BP 120 / 63 Standing; Pulse 76; hb 05:26 Body Mass Index 21.77 (63.05 kg, 170.18 cm) lp1 ED Course: 05:12 Patient arrived in ED. es 05:12 Froylan Baez DO is Private Physician. es 05:25 Alexa Tobar, MARINA is Primary Nurse. lp1 05:26 Triage completed. lp1 05:27 Arm band placed on left wrist. lp1 05:29 Patient has correct armband on for positive identification. Placed in gown. Bed in low lp1 position. Call light in reach. court monitor on. Pulse ox on. NIBP on. 06:12 Inserted saline lock: 20 gauge in right antecubital area, using aseptic technique. lp1 Blood collected. By MARINA Maddox. 06:22 X-ray completed. Portable x-ray completed in exam room. Patient tolerated procedure kw well. 06:22 XRAY Chest (1 view) In Process Unspecified. EDMS 06:31 Marcell Loera PA is PHCP. cp 06:31 Lenin Mcallister MD is Attending Physician. cp 07:38 initiated a transfer with Betty at the [facility] transfer center. eb 07:[address] Molina from [facility] with Luz Maria POWELL for patient transfer consulation. eb 08:08 administrative approval given by Stephani Arevalo. Pat was accepted by Dr. Garrison/ Pt going eb to 14 [facility] room 14 rm 1455. report to be called to [phone]/. Administered Medications: No medications were administered Outcome: 08:05 ER care complete, transfer ordered by . cp 08:55 Patient left the ED. sg Signatures: Dispatcher [employer] EDMS Rufus Briseno RN RN Betzy Elliott Kimberlee kw Pena, Laura, RN RN lp1 Marcell Loera PA PA cp Baxter, Heather, RN RN hb Botello, Elizabeth eb
--- NOTE | 2018-04-05 08:05 | EDPHYS ---
Physician Documentation [facility] Name: Yuki De Leon Age: 82 yrs Sex: Female : 1935 Arrival Date: 04/05/2018 Time: 05:12 Bed 4 Private MD: Nestor [facility] ED Physician Lenin Mcallister HPI: 04/05 06:39 This 82 yrs old Female presents to ER via Wheelchair with complaints of PACE cp MAKER PROBLEM. 06:40 The patient has experienced near-syncope, almost passed out, felt generally weak. cp Onset: The symptoms/episode began/occurred last night. Duration: The patient has had multiple episodes. 06:40 Associated injury: The patient did not suffer any apparent associated injury. cp Associated signs and symptoms: Pertinent negatives: abdominal pain, chest pain, dizziness, headache. Current symptoms: Currently, the patient is not experiencing any symptoms. Patient reports multiple alerts from pacemaker since yesterday. Historical: - Allergies: 05:28 No Known Allergies; lp1 - Home Meds: 05:28 Synthroid Oral once daily [Active]; lp1 - PMHx: 05:28 Hyperlipidemia; Hypothyroidism; Pacemaker; lp1 - PSHx: 05:28 None; lp1 - Immunization history:: Adult Immunizations up to date. - Social history:: Smoking status: Patient/guardian denies using tobacco. - Ebola Screening: : No symptoms or risks identified at this time. ROS: 06:45 Eyes: Negative for injury, pain, redness, and discharge. cp 06:45 Constitutional: Negative for body aches, chills, fever, poor PO intake. 06:45 ENT: Negative for drainage from ear(s), ear pain, sore throat, difficulty swallowing, difficulty handling secretions. 06:45 Cardiovascular: Negative for chest pain, edema, palpitations. 06:45 Respiratory: Negative for cough, shortness of breath, wheezing. 06:45 Abdomen/GI: Negative for abdominal pain, nausea, vomiting, and diarrhea, constipation, black/tarry stool, rectal bleeding. 06:45 Skin: Negative for cellulitis, rash. 06:45 Neuro: Positive for near syncope, general weakness, Negative for altered mental status, headache. 06:45 All other systems are negative. Exam: 07:00 ECG was reviewed by the Attending Physician. cp 07:00 Constitutional: The patient appears in no acute distress, alert, awake, cp non-diaphoretic, non-toxic, well developed, well nourished. 07:00 Head/Face: Normocephalic, atraumatic. cp 07:00 Eyes: Periorbital structures: appear normal, Pupils: equal, round, and reactive to light and accomodation, Extraocular movements: intact throughout, Conjunctiva: normal, no exudate, no injection, Sclera: no appreciated abnormality, Lids and lashes: appear normal, bilaterally. 07:00 ENT: External ear(s): are unremarkable, Ear canal(s): are normal, clear, TM's: dullness, bilaterally, Nose: is normal, Mouth: Lips: moist, Oral mucosa: pink and intact, moist, Posterior pharynx: is normal, airway is patent, no erythema, no exudate. 07:00 Neck: ROM/movement: is normal, is supple, without pain, no range of motions limitations, no nuchal rigidity. 07:00 Chest/axilla: Inspection: normal, Palpation: is normal, no crepitus, no tenderness. 07:00 Cardiovascular: Rate: normal, Rhythm: regular, Edema: is not appreciated, JVD: is not appreciated. 07:00 Respiratory: the patient does not display signs of respiratory distress, Respirations: normal, no use of accessory muscles, no retractions, no splinting, no tachypnea, labored breathing, is not present, Breath sounds: are clear throughout, no decreased breath sounds, no stridor, no wheezing. 07:00 Abdomen/GI: Inspection: abdomen appears normal, Palpation: abdomen is soft and non-tender, in all quadrants. 07:00 Back: pain, is absent, ROM is normal. 07:00 Skin: cellulitis, is not appreciated, no rash present. 07:00 Neuro: Orientation: to person, place \T\ time. Mentation: lucid, able to follow commands, Cerebellar function: is grossly normal, Motor: moves all fours, strength is normal, Sensation: no obvious gross deficits. Vital Signs: 05:26 BP 168 / 86; Pulse 69; Resp 18; Temp 98.1(O); Pulse Ox 99% on R/A; Weight 63.05 kg; lp1 Height 5 ft. 7 in. (170.18 cm); Pain 0/10; 06:08 BP 159 / 70; Pulse 64; Resp 12; Pulse Ox 100% on R/A; lp1 07:13 BP 148 / 68; Pulse 65; Resp 14; Pulse Ox 100% on R/A; hb 08:08 BP 163 / 64 Supine; Pulse 63; hb 08:11 BP 150 / 67 Sitting; Pulse 72; hb 08:14 BP 120 / 63 Standing; Pulse 76; hb 05:26 Body Mass Index 21.77 (63.05 kg, 170.18 cm) lp1 MDM: 06:31 Patient medically screened. 07:30 Data reviewed: vital signs, nurses notes, lab test result(s), EKG, radiologic studies, cp plain films. 07:30 Test interpretation: by ED physician or midlevel provider: ECG, plain radiologic cp studies. 07:42 Physician consultation: Parveen Arias MD was called at 07:38, was contacted at 07:38, regarding patient's condition, after a discussion of the case, a recommendation for transfer for higher level of care is made. 08:10 Physician consultation: was contacted at 08:05, regarding regarding transfer, to [facility]. DR Garrison, dredge mechanic \T\[facility], will accept patient as transfer. 04/05 06:01 Order name: Basic Metabolic Panel lp1 04/05 06:01 Order name: CBC with Diff lp1 04/05 06:01 Order name: Ckmb; Complete Time: 07:20 lp1 04/05 06:01 Order name: CPK; Complete Time: 07:20 lp1 04/05 06:01 Order name: LFT's; Complete Time: 07:20 lp1 04/05 07:21 Interpretation: Normal except: AST 12; A/G 1.0. cp 04/05 06:01 Order name: Magnesium; Complete Time: 07:20 lp1 04/05 06:01 Order name: NT PRO-BNP; Complete Time: 07:20 lp1 04/05 06:01 Order name: PT-INR; Complete Time: 07:20 lp1 04/05 06:01 Order name: Ptt, Activated; Complete Time: 07:20 lp1 04/05 06:01 Order name: Troponin (emerg Dept Use Only); Complete Time: 07:20 lp1 04/05 06:01 Order name: XRAY Chest (1 view) lp1 04/05 06:01 Order name: Basic Metabolic Panel; Complete Time: 07:20 EDMS 04/05 07:21 Interpretation: Normal except: CL 110; GLUC 107; GFR 53. cp 04/05 06:01 Order name: CBC with Automated Diff; Complete Time: 07:20 EDMS 04/05 07:21 Interpretation: Normal except: RDW 15.3. cp 04/05 07:55 Order name: Urine Dipstick--Ancillary (enter results) eb 04/05 06:01 Order name: EKG; Complete Time: 06:02 lp1 04/05 06:01 Order name: Cardiac monitoring; Complete Time: 06:09 lp1 04/05 06:01 Order name: EKG - Nurse/Tech; Complete Time: 06:09 lp1 04/05 06:01 Order name: IV Saline Lock; Complete Time: 06:13 lp1 04/05 06:01 Order name: Labs collected and sent; Complete Time: 06:13 lp1 04/05 06:01 Order name: O2 Per Protocol; Complete Time: 06:10 lp1 04/05 06:01 Order name: O2 Sat Monitoring; Complete Time: 06:10 lp1 04/05 06:01 Order name: Urine Dipstick-Ancillary (obtain specimen); Complete Time: 07:46 lp1 04/05 07:23 Order name: Orthostatics; Complete Time: 08:06 cp EC:00 Rate is 65 beats/min. Rhythm is regular. DC interval is normal at 122 msec. QRS cp interval is normal. QT interval is normal. T waves are Flattened in lead aVL. Interpreted by me. Reviewed by me. Administered Medications: No medications were administered Disposition: 04/05/18 08:05 Transfer ordered to [facility]. Diagnosis are Encounter for adjustment and management of cardiac pacemaker, Weakness - General. - Reason for transfer: Higher level of care. - Accepting physician is DR Garrison. - Condition is Stable. - Problem is new. - Symptoms have improved. Signatures: Dispatcher [employer] EDMS Rufus Briseno RN RN sg Alexa Tobar RN RN lp1 Marcell Loera PA PA cp Corrections: (The following items were deleted from the chart) 08:14 08:05 04/05/2018 08:05 Transfer ordered to [facility]. Diagnosis is cp Encounter for adjustment and management of cardiac pacemaker; Weakness - General. Reason for transfer: Higher level of care. Accepting physician is DR Molina. Condition is Stable. Problem is new. Symptoms have improved. cp 08:55 08:14 04/05/2018 08:05 Transfer ordered to [facility]. Diagnosis is sg Encounter for adjustment and management of cardiac pacemaker; Weakness - General. Reason for transfer: Higher level of care. Accepting physician is DR Garrison. Condition is Stable. Problem is new. Symptoms have improved. cp
--- OUTSIDE RECORDS SUMMARY | 2018-04-05 08:20 | XMS REPORT ---
[...] Start End Date Status Dosage Date Claritin [facility] 32645644552 10 MG Orally Active 1 tablet Once a day Aspir-81 ND 30073120371 81 MG Orally Active 1 tablet Once a day Melatonin ND 31921333148 5 MG Orally Once Active 1 tablet at a day bedtime as needed with food Eliquis ND 25683328937 5 MG Orally BID Active not defined Zoloft [facility] 08697254231 100 MG Orally Active 1 tablet Once a day Synthroid [facility] 56624998782 88 MCG Orally Active 1 tablet on Once a day an empty stomach in the morning Results No Known Results Summary Purpose eClinicalWorks Submission
--- OUTSIDE RECORDS SUMMARY | 2018-04-05 08:20 | XMS REPORT ---
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 Active Assessment Tubular adenoma D36.9 Active Assessment Chronic kidney disease, stage 3 N18.3 Active Assessment Gastro-esophageal reflux disease K21.9 Active without esophagitis Assessment Lung nodule, solitary R91.1 Active Assessment Hyperlipidemia E78.5 Active Assessment Bilateral pulmonary embolism I26.99 Active Assessment Hypothyroidism E03.9 Active Assessment Chronic fatigue R53.82 Active Problem Gastro-esophageal reflux disease K21.9 Active without esophagitis Assessment Spinal stenosis, 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 Problem Pulmonary embolism I26.99 Active Assessment Depression F32.9 Active Problem Family history of breast cancer Z80.3 Active Problem Osteopenia M85.80 Active Problem Abnormal mammogram R92.8 Active Problem Spinal stenosis, 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 Problem Hyperlipidemia E78.5 Active Problem Chronic fatigue R53.82 Active Problem Chronic kidney disease, stage 3 N18.3 Active Problem Bilateral pulmonary embolism I26.99 Active Problem Palpitation [...] Instructions Start End Date Status Dosage Date Eliquis [facility] 74515650971 5 MG Orally BID Active not defined Zoloft [facility] 69711162335 100 MG Orally Active 1 tablet Once a day Aspir-81 [facility] 87049222250 81 MG Orally Active 1 tablet Once a day Melatonin ND 46986259667 5 MG Orally Once Active 1 tablet at a day bedtime as needed with food Synthroid [facility] 69001213834 88 MCG Orally Active 1 tablet on Once a day an empty stomach in the morning Claritin [facility] 22798021226 10 MG Orally Active 1 tablet Once a day Results No Known Results Summary Purpose eClinicalWorks Submission
--- OUTSIDE RECORDS SUMMARY | 2018-04-05 08:20 | XMS REPORT | Clinical Summary ---
:1935 Author Organization [facility] Address [address] [place] [id number] Care Team Providers Name Role Phone Asked, [...] INFLUENZA VACCINE 02/22/2018 Implants Implanted Type Area Tower Switch Operator Device Expiration Model / Identifier Date Serial / Lot Pacemaker Harness And Bag Inspector Dr Mri 2chmbr W/ Is-1 Uni/Bi Conn Advisa - [id number] - [id number] Cardiac N/A: [employer] 12/19/2017 [id number] / Implanted: Qty: 1 on 08/21/2016 by Dawson Tompkins MD Pacemaker N/A CARDIAC RHYTHM [id number] / Generators DISEASE MGMT [id number] Lead, Pacemaker Bipolar Fix Forming Atrial And Ventricular Steroid Eluting 52 Centimeter Capsure Fix Novus - [id number] Cardiac Pacing N/A: [employer] CRM 04/10/2018 [id number] / Implanted: 08/21/2016 (Quantity not on file) Leads or N/A [employer] [id number] / Electrodes or [id number] Accessories Lead, Bipolar Active Fixation Atrial Steroid Eluting 45 Cm Capsure Fix Novus System - [id number] Cardiac Pacing N/A: [employer] [facility] 05/31/2018 [id number] / Implanted: 08/21/2016 (Quantity not on file) Leads or N/A [employer] [id number] / Electrodes or [id number] Accessories Results Not on fileafter 04/04/2017 Insurance Payer Benefit Plan / Group Subscriber ID Type Phone Address MEDICARE MEDICARE PART A AND B xxxxxxxxxx Medicare [place], [place] AETNA MEDICARE AETNA MEDICARE HMO/PPO [facility] xxxxxxxx HMO 522 [phone] [place] [id number]
--- NOTE | 2018-04-05 08:36 | RAD REPORT ---
EXAM DESCRIPTION: RAD - Chest Single View - 04/05/2018 6:22 am CLINICAL HISTORY: CHEST PAIN Chest pain. COMPARISON: Chest Pa And Lat (2 Views) dated 11/17/2017; Chest Single View dated 10/26/2017; Chest Pa A nd Lat (2 Views) dated 04/25/2017; Chest Pa And Lat (2 Views) dated 02/10/2017 FINDINGS: Portable technique limits examination quality. The lungs are grossly clear. The heart is normal in size. No displaced fractures.Dual lead pacer krystal ce is in place. IMPRESSION: No acute intrathoracic process suspected.
[2018-04-05 09:04] VITALS: TEMP 98.1
[2018-04-05 09:05] VITALS: O2SAT 100
[2018-04-05 09:10] VITALS: BP 120/63
[2018-04-05 10:27] LABS: Urine Blood NEGATIVE (NEG); Urine Glucose NEGATIVE (NEG); Urine Protein NEGATIVE (NEG); Urine Specific Gravity 1.015 (1.005-1.030)
--- NOTE | 2018-04-05 12:09 | EKG ---
Test Date: 2018-04-05 Test Time: 05:28:45 Lead Electrical Engineer: EMERITA MEASUREMENT RESULTS: Intervals: Rate: 64 TN: 122 QRSD: 76 QT: 410 QTc: 422 [place]: P: 46 TN: 122 QRS: -36 T: 63 INTERPRETIVE STATEMENTS: Sinus rhythm with premature supraventricular complexes Left axis deviation Possible Inferior infarct, age undetermined Cannot rule out Anterior infarct, age undetermined Abnormal ECG Compared to ECG 11/17/2017 13:36:22 Atrial premature complex(es) now present Left-axis deviation now present Right superior axis no longer present Myocardial infarct finding still present Electronically Signed On 04-05-18 12:08:28 CDT by Parveen Arias
== END 2018-04-05 08:55 | disposition short-term general hospital (02) ==
LOC: ER 05:11
DX: Z45.02 Encounter for adjustment and management of automatic implantable cardiac defibrillator (principal); E03.9 Hypothyroidism, unspecified
CPT/HCPCS: 36415; 71045; 80048; 80076; 81003; 82550; 82553; 83735; 83880; 84484; 85025; 85610; 85730; 93005; 99284

== ENCOUNTER 2019-06-05 16:35 | Observation (INO) | payer OTHER ==
--- OUTSIDE RECORDS SUMMARY | 2019-06-05 16:38 | XMS REPORT ---
:1935 [facility] Organization [facility] Address [address] [place] [address] Care Team Providers Name Role Phone ANGELO BERMAN Unavailable Unavailable Problems This patient has no known problems. Allergies, Adverse Reactions, Alerts This patient has no known allergies or adverse reactions. Medications This patient has no known medications. Results Test Description Test Time Test Comments Text Results Atomic Results Result Comments APTT 2018-04-06 08:49:00 Test Item Value Reference Range Comments PARTIAL THROMBOPLASTIN TIME (BEAKER) (test secw=383) 88.1 seconds 22.5-36.0 [id number] 06:02:00 Test Item Value Reference Range Comments PARTIAL THROMBOPLASTIN TIME (BEAKER) (test 141.3 seconds 22.5-36.0 zaql=169) [id number] 05:54:00 Test Item Value Reference Range Comments MAGNESIUM (BEAKER) (test zpoq=104) 2.0 mg/dL 1.6-2.6 BASIC METABOLIC [id number] 05:54:00 Test Item Value Reference Range Comments SODIUM (BEAKER) (test 143 meq/L 136-145 rzju=734) POTASSIUM (BEAKER) (test 4.0 meq/L 3.5-5.1 jofn=708) CHLORIDE (BEAKER) (test 111 meq/L 98-107 ixyf=162) CO2 (BEAKER) (test 24 meq/L 22-29 fcck=341) BLOOD UREA NITROGEN 12 mg/dL 7-21 (BEAKER) (test fwbm=683) CREATININE (BEAKER) (test 0.86 mg/dL 0.57-1.25 gady=828) GLUCOSE RANDOM (BEAKER) 101 mg/dL 70-105 (test yzpk=240) CALCIUM (BEAKER) (test 9.0 mg/dL 8.4-10.2 qtfv=856) EGFR (BEAKER) (test 63 mL/min/1.73 sq m ESTIMATED GFR IS NOT iria=6153) ACCURATE CREATININE CLEARANCE IN PREDICTING GLOMERULAR FILTRATION RATE. ESTIMATED GFR IS NOT APPLICABLE FOR DIALYSIS PATIENTS. PROTHROMBIN [id number] 05:51:00 Test Item Value Reference Range Comments PROTIME (BEAKER) (test yhgt=228) 15.0 seconds 11.7-14.7 INR (BEAKER) (test biws=121) 1.2 <=5.9 RECOMMENDED COUMADIN/WARFARIN INR THERAPY RANGESSTANDARD DOSE: 2.0 - 3.0 Includes: PROPHYLAXIS forvenous thrombosis, systemic embolization; TREATMENT for venous thrombosis and/or pulmonary embolus.HIGH RISK: Target INR is 2.5-3.5 for patients with mechanical heart valves.CBC W/PLT COUNT & AUTO [id number] 05:39:00 Test Item Value Reference Range Comments WHITE BLOOD CELL COUNT (BEAKER) (test mogq=148) 6.6 K/ L 3.5-10.5 RED BLOOD CELL COUNT (BEAKER) (test xcws=691) 4.25 M/ L 3.93-5.22 HEMOGLOBIN (BEAKER) (test fgkx=674) 12.5 GM/DL 11.2-15.7 HEMATOCRIT (BEAKER) (test qtja=226) 39.0 % 34.1-44.9 MEAN CORPUSCULAR VOLUME (BEAKER) (test nzdq=650) 91.8 fL 79.4-94.8 MEAN CORPUSCULAR HEMOGLOBIN (BEAKER) (test 29.4 pg 25.6-32.2 wmmg=344) MEAN CORPUSCULAR HEMOGLOBIN CONC (BEAKER) (test 32.1 GM/DL 32.2-35.5 eqrg=381) RED CELL DISTRIBUTION WIDTH (BEAKER) (test 14.5 % 11.7-14.4 uesu=808) PLATELET COUNT (BEAKER) (test uruo=936) 330 K/CU MM 150-450 MEAN PLATELET VOLUME (BEAKER) (test wovr=971) 10.0 fL 9.4-12.3 NUCLEATED RED BLOOD CELLS (BEAKER) (test 0 /100 WBC 0-0 iucu=435) NEUTROPHILS RELATIVE PERCENT (BEAKER) (test 47 % brpd=224) LYMPHOCYTES RELATIVE PERCENT (BEAKER) (test 40 % ljap=154) MONOCYTES RELATIVE PERCENT (BEAKER) (test 10 % pwgh=159) EOSINOPHILS RELATIVE PERCENT (BEAKER) (test 1 % gcmg=291) BASOPHILS RELATIVE PERCENT (BEAKER) (test 0 % anha=841) NEUTROPHILS ABSOLUTE COUNT (BEAKER) (test 3.14 K/ L 1.56-6.13 dcip=731) LYMPHOCYTES ABSOLUTE COUNT (BEAKER) (test 2.68 K/ L 1.18-3.74 zqgh=004) MONOCYTES ABSOLUTE COUNT (BEAKER) (test 0.69 K/ L 0.24-0.36 nnqy=296) EOSINOPHILS ABSOLUTE COUNT (BEAKER) (test 0.07 K/ L 0.04-0.36 qjet=440) BASOPHILS ABSOLUTE COUNT (BEAKER) (test 0.02 K/ L 0.01-0.08 ksfa=060) IMMATURE GRANULOCYTES-RELATIVE PERCENT (BEAKER) 1 % 0-1 (test kglt=1488) RAD, CHEST, 2 [id number] 23:40:00Reason for exam:->syncope - eval for pacemaker lead migrationShould this be performed at the bedside?->YesFINAL REPORT Examination: Two view Chest X-ray. CLINICAL HISTORY: Syncope, evaluate pacemaker lead placement COMPARISON:None. A left subclavian, dual-lead pacemaker is in place.The leads terminate over the expected positions of the right atrium and right ventricle. Lead position appears excellent as expected. Comparison to previous imaging would be helpful, if available elsewhere. The cardiac silhouette is within normal limits for size. There is atherosclerotic calcificationof the aorta. There is subtle, ill- defined, approximately 1.5 cm opacity overlying the right apex. This may reflect a superimposition of normal shadows but a pulmonary lesion is not excluded. Evaluation with CT chest is recommended if not previously obtained elsewhere. There is no pleural effusion, pneumothorax or evidence of overt pulmonary edema. There is no acute bony abnormality. IMPRESSION: Left subclavian, dual-lead pacemaker appears appropriate position. Comparison with previous imaging would be helpful, if available elsewhere. Ill-defined approximately 1.5 cm opacity overlying the right apex. A pulmonary lesion is not excluded. Evaluation with CT chest is recommended if not previously obtained elsewhere. Signed: Maria G Lazo MDReport Verified Date/Time: 2017 23:40:52 Reading Location: [address] Reading Room [id number] 21:18:00 Test Item Value Reference Range Comments PARTIAL THROMBOPLASTIN TIME (BEAKER) (test 109.1 seconds 22.5-36.0 rjir=769) TSH/FREE T4 IF [id number] 14:58:00 Test Item Value Reference Range Comments THYROID STIMULATING HORMONE (BEAKER) (test 1.57 uIU/mL 0.35-4.94 tszv=313) [id number] 14:49:00 Test Item Value Reference Range Comments MAGNESIUM (BEAKER) (test qsfc=123) 2.1 mg/dL 1.6-2.6 COMPREHENSIVE METABOLIC [id number] 14:49:00 Test Item Value Reference Range Comments TOTAL PROTEIN (BEAKER) 6.2 gm/dL 6.0-8.3 (test psvw=529) ALBUMIN (BEAKER) (test 3.6 g/dL 3.5-5.0 vpql=1378) ALKALINE PHOSPHATASE 65 U/L 40-150 (BEAKER) (test mbzc=491) BILIRUBIN TOTAL (BEAKER) 0.5 mg/dL 0.2-1.2 (test ovki=911) SODIUM (BEAKER) (test 141 meq/L 136-145 wcyi=754) POTASSIUM (BEAKER) (test 4.0 meq/L 3.5-5.1 ltwp=374) CHLORIDE (BEAKER) (test 109 meq/L 98-107 lhrs=673) CO2 (BEAKER) (test 26 meq/L 22-29 yygx=353) BLOOD UREA NITROGEN 13 mg/dL 7-21 (BEAKER) (test cryj=983) CREATININE (BEAKER) (test 1.03 mg/dL 0.57-1.25 eqoa=785) GLUCOSE RANDOM (BEAKER) 145 mg/dL 70-105 (test ifub=612) CALCIUM (BEAKER) (test 8.9 mg/dL 8.4-10.2 rgkz=746) AST (SGOT) (BEAKER) (test 14 U/L 5-34 cofc=839) ALT (SGPT) (BEAKER) (test 10 U/L 6-55 wqqh=223) EGFR (BEAKER) (test 52 mL/min/1.73 sq m ESTIMATED GFR IS NOT alcs=8986) ACCURATE CREATININE CLEARANCE IN PREDICTING GLOMERULAR FILTRATION RATE. ESTIMATED GFR IS NOT APPLICABLE FOR DIALYSIS PATIENTS. B-TYPE NATRIURETIC FACTOR (BNP)2018-04-05 14:44:00 Test Item Value Reference Range Comments B-TYPE NATRIURETIC PEPTIDE (BEAKER) (test 141 pg/mL 0-100 gzsh=205) TROPONIN [id number] 14:39:00 Test Item Value Reference Range Comments TROPONIN I (BEAKER) (test nffb=917) < ng/mL 0.00-0.03 Troponin I (TnI) levels must be interpreted in the context of the presenting symptoms and the clinical findings. Elevated TnI levels indicate myocardial damage, but are not specific for ischemic heart disease. Elevated TnI levels are seen in patients with other cardiac conditions (including myocarditis and congestive heart failure), and slight TnI elevations occur in patients with other conditions, including sepsis, renal failure, acidosis, acute neurological disease, and persistent tachyarrhythmia.[id number] 12:46:00 Test Item Value Reference Range Comments PARTIAL THROMBOPLASTIN TIME (BEAKER) (test 32.8 seconds 22.5-36.0 vywv=345) [id number] 12:45:00 Test Item Value Reference Range Comments PARTIAL THROMBOPLASTIN TIME (BEAKER) (test 33.7 seconds 22.5-36.0 xrxi=581) Prior to initiating heparinPROTHROMBIN TIME/[id number] 12:45:00 Test Item Value Reference Range Comments PROTIME (BEAKER) (test awxk=204) 13.9 seconds 11.7-14.7 INR (BEAKER) (test hpwp=830) 1.1 <=5.9 RECOMMENDED COUMADIN/WARFARIN INR THERAPY RANGESSTANDARD DOSE: 2.0 - 3.0 Includes: PROPHYLAXIS forvenous thrombosis, systemic embolization; TREATMENT for venous thrombosis and/or pulmonary embolus.HIGH RISK: Target INR is 2.5-3.5 for patients with mechanical heart valves.CBC W/PLT COUNT & AUTO [id number] 12:43:00 Test Item Value Reference Range Comments WHITE BLOOD CELL COUNT (BEAKER) (test jajn=492) 6.6 K/ L 3.5-10.5 RED BLOOD CELL COUNT (BEAKER) (test jbzr=753) 4.52 M/ L 3.93-5.22 HEMOGLOBIN (BEAKER) (test qifq=266) 13.3 GM/DL 11.2-15.7 HEMATOCRIT (BEAKER) (test twmg=549) 41.6 % 34.1-44.9 MEAN CORPUSCULAR VOLUME (BEAKER) (test ngkg=839) 92.0 fL 79.4-94.8 MEAN CORPUSCULAR HEMOGLOBIN (BEAKER) (test 29.4 pg 25.6-32.2 ptcr=014) MEAN CORPUSCULAR HEMOGLOBIN CONC (BEAKER) (test 32.0 GM/DL 32.2-35.5 xqqb=657) RED CELL DISTRIBUTION WIDTH (BEAKER) (test 14.6 % 11.7-14.4 hojn=967) PLATELET COUNT (BEAKER) (test ooyn=520) 369 K/CU MM 150-450 MEAN PLATELET VOLUME (BEAKER) (test kpsy=427) 10.0 fL 9.4-12.3 NUCLEATED RED BLOOD CELLS (BEAKER) (test 0 /100 WBC 0-0 dqsk=423) NEUTROPHILS RELATIVE PERCENT (BEAKER) (test 47 % putf=467) LYMPHOCYTES RELATIVE PERCENT (BEAKER) (test 41 % hcfd=585) MONOCYTES RELATIVE PERCENT (BEAKER) (test 11 % cqnr=749) EOSINOPHILS RELATIVE PERCENT (BEAKER) (test 1 % vizr=892) BASOPHILS RELATIVE PERCENT (BEAKER) (test 0 % zlmx=740) NEUTROPHILS ABSOLUTE COUNT (BEAKER) (test 3.12 K/ L 1.56-6.13 xkpz=736) LYMPHOCYTES ABSOLUTE COUNT (BEAKER) (test 2.69 K/ L 1.18-3.74 hfcv=064) MONOCYTES ABSOLUTE COUNT (BEAKER) (test 0.71 K/ L 0.24-0.36 nytj=680) EOSINOPHILS ABSOLUTE COUNT (BEAKER) (test 0.07 K/ L 0.04-0.36 rwuo=528) BASOPHILS ABSOLUTE COUNT (BEAKER) (test 0.02 K/ L 0.01-0.08 lsvw=759) IMMATURE GRANULOCYTES-RELATIVE PERCENT (BEAKER) 0 % 0-1 (test ntpm=6866)
--- OUTSIDE RECORDS SUMMARY | 2019-06-05 16:38 | XMS REPORT ---
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 Problem Chronic fatigue R53.82 Active Problem Hyperlipidemia E78.5 Active Problem Chronic kidney disease, stage 3 [...] Active unspecified Problem Physical debility R53.81 Active Assessment Generalized abdominal pain R10.84 Active Problem Bilateral inguinal hernia K40.20 Active Problem Gastro-esophageal reflux disease K21.9 Active without esophagitis Assessment Gastro-esophageal reflux disease K21.9 Active without esophagitis Problem Tubular adenoma D36.9 Active Problem Pulmonary embolism I26.99 Active Medications Medication Code Code Instructions Start End Status Dosage System Date Date Repatha [facility] 27166077130 140 MG/ML Apr 16, Active 1 ml SureClick Subcutaneous 2019 every 2 weeks Claritin [facility] 93758967890 10 MG Orally Active 1 tablet Once a day Melatonin [facility] 09677399881 5 MG Orally Once Active 1 tablet a day at bedtime as needed with food Eliquis [facility] 28980105687 5 MG Orally BID Active not defined Omeprazole [facility] 83109282488 40 MG Orally Active 1 capsule Once a day -81 [facility] 71270223022 81 MG Orally Active 1 tablet Once a day Synthroid [facility] 00183076905 88 MCG Orally Active 1 tablet Once a day on an empty stomach in the morning Zoloft [facility] 48415347977 100 MG Orally Active 1 tablet Once a day Results No Known Results Summary Purpose eClinicalWorks Submission
[2019-06-05 17:17] LABS: Basophils % 0.2 % (0-1.3); Hematocrit 39.8 % (36.0-45.0); Lymphocytes % 25.9 % (15.3-44.8); MPV 8.2 fL (7.6-11.3); RBC Red Blood Cell Count 4.32 M/uL (3.86-4.86)
--- NOTE | 2019-06-05 17:17 | RAD REPORT ---
EXAM DESCRIPTION: RAD - Chest Single View - 06/05/2019 5:08 pm CLINICAL HISTORY: CHEST PAIN Chest pain. COMPARISON: Chest Single View dated 04/05/2018; Chest Pa And Lat (2 Views) dated 11/17/2017; Chest Sin gle View dated 10/26/2017; Chest Pa And Lat (2 Views) dated 04/25/2017 FINDINGS: Portable technique limits examination quality. The lungs are grossly clear. The heart is normal in size. Dual lead pacer device noted. IMPRESSION: No acute intrathoracic process suspected.
[2019-06-05 17:41] LABS: BUN Blood Urea Nitrogen 24 mg/dL (7-18); Bicarbonate 27 mmol/L (21-32); Glucose Level 103 mg/dL (74-106); NT PRO-BNP 313 pg/mL (<450); Potassium 4.4 mmol/L (3.5-5.1); Protime INR 0.93; Sodium Level 138 mmol/L (136-145); Troponin (Emerg Dept Use Only) < 0.02 ng/mL (0.0-0.045)
--- NOTE | 2019-06-05 18:21 | RAD REPORT ---
EXAM DESCRIPTION: CT - Chest For Pe Angio - 06/05/2019 6:10 pm CLINICAL HISTORY: Chest pain. CHEST PAIN COMPARISON: Thorax Wo Con dated 01/30/2018Thorax Wo Con dated 01/30/2018 TECHNIQUE: CT angiogram of the pulmonary arteries was performed with MIP. All CT scans are performed using dose optimization technique as appropriate and may include automated exposure control or mA/KV adjustment according to patient size. FINDINGS: No evidence of pulmonary thromboembolism. No acute aortic finding demonstrated. Aortic a large atherosclerosis. Dual lead pacer device. Diffuse COPD is present with 12 mm nodule in the posterior right upper lobe, unchanged. No significant pericardial or pleural fluid. No concerning bony finding. Small hiatal hernia. IMPRESSION: No evidence of pulmonary thromboembolism. COPD.
--- NOTE | 2019-06-05 18:31 | EDPHYS ---
Physician Documentation [facility] Name: Yuki De Leon Age: 84 yrs Sex: Female : 1935 Arrival Date: 06/05/2019 Time: 16:38 Bed 6 Private MD: Froylan Baez ED Physician Manolo Barcenas HPI: 06/05 16:59 This 84 yrs old Female presents to ER via Wheelchair with complaints of Chest rn Pain, High Blood Pressure, Arm Pain. 16:59 The patient or guardian reports chest pain that is located primarily in the substernal rn area. Onset: 1 hour(s) ago. The pain radiates to the left arm. Associated signs and symptoms: Pertinent positives: lightheadedness, Pertinent negatives: abdominal pain, diaphoresis, palpitations, recent travel, shortness of breath, syncope, vomiting. The chest pain is described as dull, a heaviness. Duration: The patient or guardian reports a single episode, that lasted 1 hour(s). Modifying factors: The symptoms are alleviated by nothing. the symptoms are aggravated by nothing. Severity of pain: At its worst the pain was mild in the emergency department the pain has improved. The patient has not experienced similar symptoms in the past. Reports substernal chest pain, heavy/dull, assoc with left arm pain, no trauma, no fever/cough/sob/vomiting/diaphoresis. . Historical: - Allergies: 16:59 No Known Allergies; iw - PMHx: 16:54 Hyperlipidemia; Hypothyroidism; Pacemaker; iw 17:00 PE (taking Eliquis); aa5 - PSHx: 16:54 None; iw - Immunization history:: Adult Immunizations unknown. - Ebola Screening: : Patient negative for fever greater than or equal to 101.5 degrees Fahrenheit, and additional compatible Ebola Virus Disease symptoms Patient denies exposure to infectious person Patient denies travel to an Ebola-affected area in the 21 days before illness onset No symptoms or risks identified at this time. - Family history:: not pertinent. - Social history:: Smoking status: unknown. - Hospitalizations: : No recent hospitalization is reported. ROS: 16:59 Constitutional: Negative for fever, chills, and weight loss, Eyes: Negative for injury, rn pain, redness, and discharge, Neck: Negative for injury, pain, and swelling, Cardiovascular: Negative for palpitations, and edema, Respiratory: Negative for shortness of breath, cough, wheezing, and pleuritic chest pain, Abdomen/GI: Negative for abdominal pain, nausea, vomiting, diarrhea, and constipation, MS/Extremity: Negative for injury and deformity, Skin: Negative for injury, rash, and discoloration, Neuro: Negative for weakness, numbness, tingling, and seizure. Exam: 16:59 Constitutional: This is a well developed, well nourished patient who is awake, alert, rn and in no acute distress. Head/Face: Normocephalic, atraumatic. ENT: MMM Neck: Trachea midline, no thyromegaly or masses palpated, and no cervical lymphadenopathy. Supple, full range of motion without nuchal rigidity, or vertebral point tenderness. No Meningismus. Cardiovascular: Irregular, normal rate Respiratory: No increased work of breathing, no retractions or nasal flaring. Abdomen/GI: soft, non-tender MS/ Extremity: Pulses equal, no cyanosis. Neurovascular intact. Full, normal range of motion. Equal circumference. Neuro: Awake and alert, GCS 15, oriented to person, place, time, and situation. Cranial nerves II-XII grossly intact. Motor strength 5/5 in all extremities. Sensory grossly intact. Vital Signs: 16:55 BP 186 / 80; Pulse 64; Resp 16 S; Temp 98.2; Pulse Ox 100% on R/A; iw 17:30 BP 172 / 69; Pulse 62; Resp 14 S; Pulse Ox 100% on R/A; Pain 5/10; aa5 19:29 BP 166 / 58; Pulse 71; Resp 14 S; Temp 98.5(TE); Pulse Ox 100% on R/A; Pain 0/10; bb MDM: 16:42 Patient medically screened. rn 18:27 Differential diagnosis: acute myocardial infarction, acute pericarditis, coronary rn artery disease costochondritis, pleurisy, pneumothorax, pulmonary embolus, stable angina. Data reviewed: vital signs, nurses notes, lab test result(s), EKG, radiologic studies, CT scan, and as a result, I will admit patient. Counseling: I had a detailed discussion with the patient and/or guardian regarding: the historical points, exam findings, and any diagnostic results supporting the discharge/admit diagnosis, lab results, radiology results, the need for further work-up and treatment in the hospital. Response to treatment: the patient's symptoms have mildly improved after treatment, and as a result, I will admit patient. 18:29 The patient was given aspirin in the Emergency Department. Admission orders: after a rn detailed discussion of the patient's condition and case, the admit orders are written by me. Special discussion:. ED course: Pt with trop neg, nonspecific ECG, CT PE negative, will admit to Dr. Argueta. . 06/05 16:58 Order name: Basic Metabolic Panel; Complete Time: 17:59 rn 06/05 16:58 Order name: CBC with Diff; Complete Time: 17:39 rn 06/05 16:58 Order name: NT PRO-BNP; Complete Time: 17:59 rn 06/05 16:58 Order name: Troponin (emerg Dept Use Only); Complete Time: 17:59 rn 06/05 17:11 Order name: Ptt, Activated; Complete Time: 17:59 bp 06/05 17:11 Order name: PT-INR; Complete Time: 17:59 bp 06/05 16:58 Order name: XRAY Chest (1 view); Complete Time: 17:39 rn 06/05 16:58 Order name: EKG; Complete Time: 16:58 rn 06/05 16:58 Order name: Cardiac monitoring; Complete Time: 17:02 rn 06/05 16:58 Order name: EKG - Nurse/Tech; Complete Time: 17:02 rn 06/05 16:58 Order name: IV Saline Lock; Complete Time: 17:06 rn 06/05 16:58 Order name: Labs collected and sent; Complete Time: 17:06 rn 06/05 16:58 Order name: CT Chest For PE Angio; Complete Time: 18:27 rn 06/05 16:58 Order name: O2 Per Protocol; Complete Time: 17:02 rn 06/05 16:58 Order name: O2 Sat Monitoring; Complete Time: 17:02 rn Administered Medications: 18:50 Drug: Aspirin Chewable Tablet 324 mg Route: PO; aa5 19:49 Follow up: Response: No adverse reaction bb Disposition: 06/05/19 18:30 Hospitalization ordered by Dara Argueta for Observation. Preliminary diagnosis is Chest pain, unspecified. - Bed requested for Telemetry/MedSurg (observation). - Status is Observation. bb - Condition is Stable. - Problem is new. - Symptoms have improved. UTI on Admission? No Signatures: Dispatcher [employer] EDMS Jacquie Nina RN Zoya García RN Azalia Clements, RN Manolo Shaikh MD MD rn Calderon, Audri, RN RN aa5 Corrections: (The following items were deleted from the chart) 19:22 18:30 Hospitalization Ordered by Dara Argueta MD for Observation. Preliminary diagnosis mw is Chest pain, unspecified. Bed requested for Telemetry/MedSurg (observation). Status is Observation. Condition is Stable. Problem is new. Symptoms have improved. UTI on Admission? No. rn 20:08 19:22 06/05/2019 18:30 Hospitalization Ordered by Dara Argueta MD for Observation. bb Preliminary diagnosis is Chest pain, unspecified. Bed requested for Telemetry/MedSurg (observation). Status is Observation. Condition is Stable. Problem is new. Symptoms have improved. UTI on Admission? No. mw
--- NOTE | 2019-06-05 18:31 | ER ---
Nurse's Notes [facility] Name: Yuki De Leon Age: 84 yrs Sex: Female : 1935 Arrival Date: 06/05/2019 Time: 16:38 Bed 6 Private MD: Froylan Baez Diagnosis: Chest pain, unspecified Presentation: 06/05 16:50 Presenting complaint: Patient states: left sided chest pain this morning that lasted iw about one hour, also had pain down left arm, chest pain has resolved, arm pain still there, described as achy. Transition of care: patient was not received from another setting of care. Onset of symptoms was June 05, 2019. Risk Assessment: Do you want to hurt yourself or someone else? Patient reports no desire to harm self or others. Initial Sepsis Screen: Does the patient meet any 2 criteria? No. Patient's initial sepsis screen is negative. Does the patient have a suspected source of infection? No. Patient's initial sepsis screen is negative. Care prior to arrival: None. 16:50 Method Of Arrival: Wheelchair iw 16:50 Acuity: SHAQ 2 aa5 Historical: - Allergies: 16:59 No Known Allergies; iw - PMHx: 16:54 Hyperlipidemia; Hypothyroidism; Pacemaker; iw 17:00 PE (taking Eliquis); aa5 - PSHx: 16:54 None; iw - Immunization history:: Adult Immunizations unknown. - Ebola Screening: : Patient negative for fever greater than or equal to 101.5 degrees Fahrenheit, and additional compatible Ebola Virus Disease symptoms Patient denies exposure to infectious person Patient denies travel to an Ebola-affected area in the 21 days before illness onset No symptoms or risks identified at this time. - Family history:: not pertinent. - Social history:: Smoking status: unknown. - Hospitalizations: : No recent hospitalization is reported. Screenin:10 Abuse screen: Denies threats or abuse. Nutritional screening: No deficits noted. aa5 Tuberculosis screening: No symptoms or risk factors identified. Fall Risk None identified. Assessment: 16:59 General: Appears comfortable, Behavior is calm, cooperative. Pain: Complains of pain in aa5 anterior aspect of left upper chest Pain radiates to left arm Pain currently is 5 out of 10 on a pain scale. Quality of pain is described as aching, Pain began "this morning" Is continuous. Neuro: Level of Consciousness is awake, alert, obeys commands, Oriented to person, place, time, situation. Cardiovascular: Reports chest pain, Heart tones S1 S2 present Edema is absent. Rhythm is regular. Respiratory: Airway is patent Respiratory effort is even, unlabored, Respiratory pattern is regular, symmetrical, Breath sounds are clear bilaterally. Denies shortness of breath. GI: Abdomen is round non-distended, Bowel sounds present X 4 quads. Abd is soft and non tender X 4 quads. : No signs and/or symptoms were reported regarding the genitourinary system. EENT: No signs and/or symptoms were reported regarding the EENT system. Derm: Skin is pink, warm \\T\\ dry. Musculoskeletal: Range of motion: intact in all extremities. 17:00 Reassessment: Pt states "my blood pressure was high so I took a Coreg from my 's aa5 medication". Pt states "I know one of my pacemaker's wires is loose or something and I did see my dental office assistant for that" . 17:05 Reassessment: Patient is alert, oriented x 3, equal unlabored respirations, skin aa5 warm/dry/pink. Pt notified of wait time for lab and x-ray results. Pt's family at bedside. . 18:20 Reassessment: Patient is alert, oriented x 3, equal unlabored respirations, skin aa5 warm/dry/pink. Pt back from CT, denies any complaints at this time. . 18:55 Reassessment: Patient is alert, oriented x 3, equal unlabored respirations, skin aa5 warm/dry/pink. Pt sitting up in bed watching TV. Pt given sandwich, baked chips, and diet soda at this time, pt tolerating well. . 19:27 Reassessment: Patient is alert, oriented x 3, equal unlabored respirations, skin bb warm/dry/pink. Reassessment: pt eating hamburger family at bedside. General: Appears in no apparent distress. Behavior is calm, cooperative. Neuro: Level of Consciousness is awake, alert, obeys commands, Oriented to person, place, time, situation. Cardiovascular: Heart tones S1 S2 present Capillary refill < 3 seconds Patient's skin is warm and dry. Respiratory: Airway is patent Breath sounds are clear bilaterally. 19:49 Reassessment: report called to Reba GRAY for room 424. bb Vital Signs: 16:55 BP 186 / 80; Pulse 64; Resp 16 S; Temp 98.2; Pulse Ox 100% on R/A; iw 17:30 BP 172 / 69; Pulse 62; Resp 14 S; Pulse Ox 100% on R/A; Pain 5/10; aa5 19:29 BP 166 / 58; Pulse 71; Resp 14 S; Temp 98.5(TE); Pulse Ox 100% on R/A; Pain 0/10; bb ED Course: 16:38 Patient arrived in ED. mr 16:39 Froylan Baez, DO is Private Physician. mr 16:42 Manolo Barcenas MD is Attending Physician. rn 16:49 Gifty Bonner RN is Primary Nurse. aa5 16:53 Triage completed. iw 16:59 Radiology exam delayed due to lab results not completed at this time. (BUN/Creatinine). kw1 16:59 Arm band placed on. iw 16:59 Patient has correct armband on for positive identification. Placed in gown. Bed in low aa5 position. Call light in reach. Side rails up X2. cardiac monitor on. Pulse ox on. NIBP on. 17:01 EKG done, by technical manager. reviewed by Manolo Barcenas MD. 3 17:03 Initial lab(s) drawn, by me, sent to lab. Inserted saline lock: 20 gauge in right aa5 antecubital area, using aseptic technique. Blood collected. 17:08 XRAY Chest (1 view) In Process Unspecified. EDMS 17:34 No provider procedures requiring assistance completed. Patient maintains SpO2 aa5 saturation greater than 95% on room air. 18:[address] via stretcher. nj 18:10 CT Chest For PE Angio In Process Unspecified. EDMS 18:30 Dara Argueta MD is Hospitalizing Provider. rn 19:00 Report given to MARINA Kenny. aa5 19:48 Patient admitted, IV remains in place. bb Administered Medications: 18:50 Drug: Aspirin Chewable Tablet 324 mg Route: PO; aa5 19:49 Follow up: Response: No adverse reaction bb Outcome: 18:30 Decision to Hospitalize by Provider. rn 19:48 Admitted to Tele accompanied by tech, family with patient, via stretcher, room 424. bb 19:48 Condition: stable 19:48 Instructed on the need for admit. 20:08 Patient left the ED. bb Signatures: Dispatcher [employer] LELE FreddieViktoriya BraulioZoya, RN RN Azalia Winter RN RN iw Nieto, Roman, MD MD rn Calderon, Audri, RN RN aa5 Delta Chapman [facility] Sera Nath [facility] Corrections: (The following items were deleted from the chart) 17:32 16:50 Acuity: SHAQ 3 iw aa5
[2019-06-05] MEDS ORDERED: ASPIRIN 81 MG CHEWABLE TABLET ONE (18:52)
[2019-06-05] MEDS ORDERED: MORPHINE 4 MG/ML SYR IV PRN (20:25)
[2019-06-05] MEDS ORDERED: ACETAMINOPHEN 500 MG TAB PO PRN (20:25)
[2019-06-05] MEDS ORDERED: NITROGLYCERIN 0.4 MG/TAB SL PRN (20:25)
--- NOTE | 2019-06-05 20:52 | P.HP ---
Certification for Inpatient Patient admitted to: Observation With expected LOS: <2 Midnights Practitioner: I am a practitioner with admitting privileges, knowledge of patient current condition, hospital course, and medical plan of care. Services: Services provided to patient in accordance with Admission requirements found in Title 42 Section 412.3 of the Code of Federal Regulations Patient History Date of Service: 06/06/19 Reason for admission: Chest pain History of Present Illness: 84-year-old woman with a history of hypertension, history of DVT and pulmonary embolism on Eliquis presented to the emergency department with a complaint of left-sided chest pain, which started 1 day ago, maximum intensity 8/10, no relieving or aggravating factors. Patient stated the chest pain resolved around mid afternoon today. She stated she thought she was having a heart attack and came to the ED for evaluation. She denied any associated diaphoresis or palpitation or lightheadedness or nausea. She had no chest pain during my examination in the ED. Her initial troponin in the ED is negative. CTA thorax performed was negative for pulmonary embolism or infiltrate. EKG shows no significant ischemic changes. Patient is placed under observation for acute coronary syndrome rule out. Allergies No Known Allergies Allergy (Verified 06/05/19 20:44) Home Medications: Hypromellose [Artificial Tears] 1 gtt OP PRN PRN 02/07/13 Timolol 0.5% Opth [Timoptic 0.5% Opth*] 1 drops EACH EYE BID 02/07/13 Melatonin 1 tab PO BEDTIME 11/17/17 Apixaban [Eliquis *] 1 tab PO BID 06/05/19 Levothyroxine Sodium 1 tab PO DAILY 06/05/19 Omeprazole 1 tab PO BEDTIME 06/05/19 Ropinirole HCl 1 tab PO BID 06/05/19 Sertraline [Zoloft*] 1 tab PO DAILY 06/05/19 - Past Medical/Surgical History Diabetic: No -: Hypothyroidism -: Glaucoma -: History of DVT -: GERD -: Depression with anxiety -: Hyperlipidemia -: Spinal stenosis -: Hysterectomy -: Cornea implants -: Neck surgery -: Pacemaker placement Psychosocial/ Personal History: She is of over 60 years, has 3 children , 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 - Family History Father -: Cancer (Lung cancer, heavy smoker) Notes: Lung CA Mother -: Heart disease, Hypertension Brother -: Hypertension, Diabetes Sisters -: Diabetes - Social History Alcohol use: No CD- Drugs: No Caffeine use: Yes Review of Systems Other: General: No fever, no malaise, no unintentional weight loss. Eyes: No eye discharge, Respiratory: No cough, no shortness of breath. GI: No abdominal pain, no nausea no vomit, no constipation, no diarrhea. Genitourinary: No dysuria, no urinary frequency, no incontinence, no hematuria. Musculoskeletal: No joint pains, or joint swelling, no gait instability. Neurology: No headache, no asymmetric, weakness, no problem with swallowing. Except as documented, all other systems reviewed and negative. Physical Examination - Physical Exam General: Alert, In no apparent distress, Oriented x3 HEENT: Atraumatic, Normocephalic, PERRLA, Mucous membr. moist/pink, Sclerae nonicteric Neck: Supple, JVD not distended, No Thyromegaly Respiratory: Clear to auscultation bilaterally, Normal air movement Cardiovascular: No edema, Normal pulses, Regular rate/rhythm, Normal S1 S2, No murmurs Capillary refill: <2 Seconds Gastrointestinal: Normal bowel sounds, Soft and benign, Non-distended, No tenderness Musculoskeletal: No swelling Integumentary: No rashes, No erythema Neurological: Normal speech, Normal strength at 5/5 x4 extr, Cranial nerves 3- 12 intact - Studies Laboratory Data (last 24 hrs) 06/05/19 17:03: PT 11.0, INR 0.93, APTT 29.1 06/05/19 17:03: WBC 7.6, Hgb 13.2, Hct 39.8, Plt Count 325 06/05/19 17:03: Sodium 138, Potassium 4.4, BUN 24 H, Creatinine 0.90, Glucose 103 Assessment and Plan - Problems (Diagnosis) (1) Chest pain Current Visit: Yes Status: Acute (2) History of pulmonary embolism Current Visit: Yes Status: Chronic (3) History of DVT of lower extremity Current Visit: Yes Status: Chronic (4) Hypertension Current Visit: No Status: Acute Qualifiers: (5) GERD (gastroesophageal reflux disease) Current Visit: No Status: Chronic Qualifiers: (6) History of pacemaker Current Visit: No Status: Chronic (7) Hypothyroidism Current Visit: No Status: Chronic Qualifiers: - Plan Place under observation Trend troponin Aspirin, metoprolol and Lipitor Check lipid profile Aggressive blood pressure control Continue home dose Eliquis Obtain echocardiogram Cardiology consult Continue Synthroid for hypothyroidism. - Advance Directives Does patient have a Living Will: No Does patient have a Durable POA for Healthcare: No
[2019-06-05] MEDS ORDERED: ATORVASTATIN 40 MG TAB PO SCH (21:00)
[2019-06-05] MEDS: METOPROLOL TAR 50 MG TAB PO SCH (21:16)
[2019-06-05 21:28] LABS: HDL Cholesterol 72 mg/dL (40-60); LDL Cholesterol, Calculated 191 (<130); Troponin I < 0.02 ng/mL (0.0-0.045)
[2019-06-05 21:52] LABS: Urine Appearance CLEAR; Urine Bilirubin NEGATIVE (NEG); Urine Blood NEGATIVE (NEG); Urine Color YELLOW; Urine Glucose NEGATIVE (NEG); Urine Protein NEGATIVE (NEG); Urine Specific Gravity >=1.030 (1.005-1.030); Urine Urobilinogen 0.2 mg/dL (0.2-1.0)
[2019-06-05 22:42] LABS: Urine Bacteria <20 /HPF (<20); Urine Culture Reflex Order NOT NEEDED; Urine RBC NONE SEEN /HPF (NONE SEEN)
[2019-06-05 23:34] VITALS: BMI 22.5
[2019-06-06 04:29] LABS: Absolute Lymphocytes (CBC) 2.6 K/uL (0.7-4.9); Basophils % 0.2 % (0-1.3); Hematocrit 40.6 % (36.0-45.0); Lymphocytes % 30.2 % (15.3-44.8); MPV 8.6 fL (7.6-11.3); RBC Red Blood Cell Count 4.46 M/uL (3.86-4.86)
[2019-06-06 04:40] LABS: Potassium 4.3 mmol/L (3.5-5.1)
--- NOTE | 2019-06-06 07:44 | EKG ---
Test Date: 2019-06-05 Test Time: 16:58:00 General Assignment Reporter: DOROTHY MEASUREMENT RESULTS: Intervals: Rate: 64 NJ: QRSD: 76 QT: 406 QTc: 418 [place]: P: NJ: QRS: -27 T: 61 INTERPRETIVE STATEMENTS: Sinus rhythm with premature atrial complexes Possible Inferior infarct, age undetermined Cannot rule out Anterior infarct, age undetermined Abnormal ECG Compared to ECG 04/05/2018 05:28:45 Left-axis deviation no longer present Myocardial infarct finding still present Electronically Signed On 06-06-19 07:44:35 REGISTRY NP by Tobin Zapata
[2019-06-06] MEDS ORDERED: PNEUMOCOCCAL VACCINE 0.5 ML IMVAC ONE (08:00)
[2019-06-06] MEDS ORDERED: ASPIRIN EC 81 MG TAB PO SCH (09:00)
[2019-06-06] MEDS ORDERED: lisinopriL 10 MG TAB PO SCH (09:00)
[2019-06-06] MEDS ORDERED: REGADENOSON 0.4 MG/5 ML SYR IV ONE (09:06)
[2019-06-06] MEDS ORDERED: HYPROMELLOSE OP PRN (10:17)
[2019-06-06] MEDS ORDERED: APIXABAN 2.5 MG TABLET PO SCH (10:17)
[2019-06-06 10:24] VITALS: O2SAT 97
--- NOTE | 2019-06-06 10:47 | ECHO ---
HEIGHT: 5 ft 7 in WEIGHT: 144 lb 0 oz DATE OF STUDY: 06/06/[address]: Dara Argueta MD 2-DIMENSIONAL: YES M.MODE: YES DOPPLER: YES COLOR FLOW: YES TDS: PORTABLE: DEFINITY: BUBBLE STUDY: DIAGNOSIS: CHEST PAIN CARDIAC HISTORY: CATHERIZATION: SURGERY: PROSTHETIC VALVE: PACEMAKER: YES MEASUREMENTS (cm) DIASTOLIC (NORMALS) SYSTOLIC (NORMALS) IVSd 1.0 (0.6-1.2) LA Diam 3.6 (1.9-4.0) LVEF 69% LVIDd 3.5 (3.5-5.7) LVIDs 2.2 (2.0-3.5) %FS 38% LVPWd 0.9 (0.6-1.2) Ao Diam 2.8 (2.0-3.7) 2 DIMENSIONAL ASSESSMENT: RIGHT ATRIUM: NORMAL LEFT ATRIUM: NORMAL RIGHT VENTRICLE: PACEMAKER CATHETER LEFT VENTRICLE: NORMAL TRICUSPID VALVE: NORMAL MITRAL VALVE: NORMAL PULMONIC VALVE: NORMAL AORTIC VALVE: NORMAL PERICARDIAL EFFUSION: NONE AORTIC ROOT: NORMAL LEFT VENTRICULAR WALL MOTION: NORMAL DOPPLER/COLOR FLOW: MILD TRICUSPID REGURGITATION. NORMAL RIGHT VENTRICULAR SYSTOLIC PRESSURE. COMMENTS: NORMAL LEFT VENTRICULAR EJECTION FRACTION. PACEMAKER CATHETER NOTED IN RIGHT VENTRICLE. MILD TRICUSPID REGURGITATION. TECHNOLOGIST: ISABELLE SMITH
[2019-06-06] MEDS: METOPROLOL TAR 50 MG TAB PO SCH (12:00)
--- NOTE | 2019-06-06 12:32 | TREADPHA ---
DX: CHEST PAIN, ABNORMAL EKG Date of Study: 06/06/19 Ht: 5 7 Wt: 144 lb 0 oz Consulting Physician: SILVIA MEDICATIONS: TYLENOL, ASPIRIN, LIPITOR, LOPRESSOR, PRINIVIL, NITROSTAT HISTORY: 84 YEAR OLD FEMALE WITH COMPLAINTS OF CHEST PAIN. MEDICAL HISTORY OF HYPERLIPIDEMIA, HYPOTHYROIDISM, PACEMAKER, NITROSTAT PHYSICIAL EXAMINATION: RESTING B.P.: 130/63 RESTING H.R.: 74 RESTING EKG: SINUS WITH PREMATURE ATRIAL COMPLEXES PROTOCOL: LEXISCAN EXERCISE TIME: 3:30 B.P. AT PEAK STRESS: 110/53 IMPRESSION: LEXISCAN INJECTED, CARDIOLITE INJECTED PER PROTOCOL. SEE NUCLEAR MEDICINE REPORT. NO SUPRA VENTRICULAR TACHYCARDIA, NO VENTRICULAR TACHYCARDIA, NO PREMATURE VENTRICULAR COMPLEXES. DENIED CHEST PAIN. NON DIAGNOSTIC EKG WITH LEXISCAN STRESS.
--- NOTE | 2019-06-06 12:40 | RAD REPORT ---
EXAM DESCRIPTION: NM - Rest Stress Cardiac Imaging - 06/06/2019 12:18 pm CLINICAL HISTORY: Chest pain COMPARISON: None. TECHNIQUE: The patient was administered 10.2 mCi of Tc 99m Sestamibi prior to resting SPECT imaging of the heart. The patient was then administered 30.4 mCi of Tc 99m Sestamibi following exercise or ph armacologic stress. Multiplanar SPECT images were reviewed. FINDINGS: The end diastolic volume is 51 ml, the end systolic volume is 9 ml, and the ejection fract ion is 81 %. No stress-induced ischemic changes are present. Decreased activity in the anterior wall near the apex as well as the apical thinning do not change between rest and stress imaging. This is probably breas t attenuation artifact. No septal, inferior or lateral wall suspicious finding. IMPRESSION: No stress-induced ischemic change. Diminished activity in the anterior wall at the apex is favored to be breast attenuation artifact. S carring is a less likely etiology. Ventricular volumes and ejection fraction are normal range.
[2019-06-06 12:56] VITALS: BP 145/61
--- NOTE | 2019-06-06 13:06 | CON ---
Chief Complaint: Chest pain. History Of Present Illness: Ms. De Leon has been having this chest pain off and on for several years. She has probably had 100s of episodes. She has a history of a pacemaker, history of pulmonary embol us without a clear diagnosis as to why she is on chronic Eliquis therapy. Says she has never had a h eart catheterization or stress test. She also said that there was some kind of malfunction of her pa cemaker where one of the leads either is disconnected or does not work appropriately, but no recommen dation was made to repair the abnormality. All of her records come from Dr. Carvalho and are not availabl e at this time. The pain she has will have been several times a month. It is a pressure in the midd le of her chest. It goes away when she sits still, does not seem to be related to exertion. She has had abnormal troponins before. She has also had severe pulmonary hypertension. Those were associat ed with an acute pulmonary embolus in October 2017. She uses no tobacco. Denies any allergy use. Alc ohol use minimal. Outpatient Medications: Timolol eye drops, Artificial Tears, melatonin, omeprazole, ropinirole, levo thyroxine, Eliquis, and sertraline. Laboratory Data: Reveals a normal hemoglobin, hematocrit, normal creatinine. Her troponins are all normal. Her cholesterol was elevated at 287, HDL of 72, and LDL cholesterol was 197. Impression: We should have a stress test. Her EKG shows possible old infarctions. She is having ch est pain, so even though the enzymes are normal, she should have a stress test. Also, an ultrasound of her heart to check whether she still has the pulmonary hypertension. The dose of Eliquis she is s aid to be taking is inappropriate. Her dose should be 5 mg b.i.d. She is over 82, but her weight is above 60 kg and her creatinine is well below 1.5, so the appropriate dose of Eliquis is 5 b.i.d. and she has not given this for atrial fibrillation, but for history of pulmonary embolus. Case could be made long-term, she could take 10 mg of Xarelto once a day instead of low-dose Eliquis, so we will d o an echo, stress test. Consider treating lipids and getting on the appropriate dose of Eliquis. KIMO/EMLIY Voice ID: [id number] Report ID: [id number]
[2019-06-06 13:10] VITALS: TEMP 98
[2019-06-06] MEDS ORDERED: MELATONIN 5 MG TABLET PO SCH (21:00)
[2019-06-06] MEDS ORDERED: ROPINIROLE HCL 0.25 MG TAB PO SCH (21:00)
[2019-06-06] MEDS ORDERED: TIMOLOL 0.5% EACH EYE SCH (21:00)
[2019-06-06] MEDS ORDERED: PANTOPRAZOLE 40MG TABLET PO SCH (21:00)
[2019-06-06] MEDS ORDERED: OPTH EACH EYE SCH (21:00)
--- NOTE | 2019-06-07 03:28 | DS ---
Date of Discharge: 06/06/2019 Consultants: Dr. Zapata with Cardiology. Procedures: Cardiac stress test, no stress-induced ischemia. Discharge Diagnoses: 1.Chest pain, acute coronary syndrome ruled out. 2.History of pulmonary embolism, on Eliquis. 3.History of deep venous thrombosis. 4.Essential hypertension, stable. 5.Gastroesophageal reflux disease without esophagitis, stable. 6.History of pacemaker. 7.Hypothyroidism, on levothyroxine. Hospital Course: Patient is an 84-year-old female with multiple comorbid conditions including hypert ension, GERD, hypothyroidism, history of PE and DVT on Eliquis, who came in with chest pain. The pat ient also had pacemaker placement; however, states that one of the leads was broken and her cardiolog ist is aware of that fact, however, has not been recommended to have that fixed. Patient sees Cardio logy out of [facility]. Patient was admitted to rule out ACS. Initial cardiac enzymes were negative. Her cholesterol panel, however, showed elevated cholesterol level and LDL level. The patient's symptoms improved. She was started on chest pain guidelines. Due to her history, CT angio of chest was done , which ruled out PE. 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 Cardiolog y, Dr. Zapata, was consulted, he recommended cardiac stress test. Nuclear stress test showed no stre ss-induced ischemia, diminished activity in the anterior wall at the apex is favored to be breast att enuation artifact, scarring is the less likely etiology. Ventricular volumes and ejection fraction a re normal range. Pharmacological stress test also did not show any SVT. Has nondiagnostic EKG with Lexiscan. Echocardiogram showed EF of 69%, mild tricuspid regurgitation. Patient was then cleared f or discharge. She will need to follow up with her primary care physician in 2-3 days. Follow up wit h primary dead mail checker or with Dr. Zpaata in [facility]. Medications: As per medication reconciliation list. Her Eliquis dose will be increased to 5 mg p.o. b.i.d. from 2.5 mg p.o. b.i.d. She only meets 1 criteria. She is over 82, however, her kidney func tion and weight are appropriate for the regular dose of 5 mg b.i.d. She was also started on statin d ue to her uncontrolled cholesterol. She is to return to ER for worsening condition. Diet: Heart healthy. Activity: As tolerated. Physical Examination: General: Awake, alert, and oriented x3, elderly female. CV: S1, S2. No murmurs. Respiratory: Moving air well bilaterally. Abdomen: Abdomen is soft, nontender, nondistended. Positive bowel sounds. Extremities: No clubbing, cyanosis, or edema. Neurologic: Nonfocal. SKIN: Pacemaker in place. /EMILY Voice ID: [id number] Report ID: [id number]
[2019-06-07] MEDS ORDERED: LEVOTHYROXINE SOD 0.088 MG TAB PO SCH (06:30)
[2019-06-07] MEDS ORDERED: SERTRALINE HCL 100 MG TAB PO SCH (09:00)
== END 2019-06-06 15:51 | disposition home or self-care (01) ==
LOC: ER 16:35 → ERHOLD 18:30 → 4TH 19:49
PROVIDERS: ADMIT Family Medicine; ATTEND Internal Medicine
DX: R07.9 Chest pain, unspecified (principal); I10 Essential (primary) hypertension; E03.9 Hypothyroidism, unspecified; K21.9 Gastro-esophageal reflux disease without esophagitis; F41.8 Other specified anxiety disorders; E78.5 Hyperlipidemia, unspecified; Z95.0 Presence of cardiac pacemaker; Z79.01 Long term (current) use of anticoagulants; Z86.711 Personal history of pulmonary embolism; Z86.718 Personal history of other venous thrombosis and embolism
CPT/HCPCS: 93005; 93017; 93306; 85025 ×2; 81001; 80048 ×2; 36415; 85610; 80061; 85730; 84484 ×3; 83880; 71275; 71045; 94760 ×2; 78452; 99285; Q9967; J2785; A9500; G0378 ×3